=== PATIENT | female | born 1960 | race African-American/Black ===

== ENCOUNTER 2018-09-17 15:12 | Outpatient (CLI) | payer OTHER ==
--- NOTE | 2018-09-17 16:14 | RAD ---
PA AND LATERAL CHEST: History: Disability evaluation. Comparison: 12-12-14 FINDINGS: Heart size is within normal limits. There are atherosclerotic changes of the aorta. The lungs are fredy ar of any infiltrative process. IMPRESSION: No active intrathoracic disease. POS: TPC
== END 2018-09-17 15:13 | disposition home or self-care (01) ==
LOC: BICRAD 15:12
PROVIDERS: ATTEND Internal Medicine
DX: Z02.71 Encounter for disability determination (principal)
CPT/HCPCS: 71046

== ENCOUNTER 2019-08-19 17:05 | Emergency (ER) | payer SELFPAY ==
[2019-08-19 18:51] LABS: #Basophils 0.1 thou/uL (0.0-0.2); #Eosinphils 0.4 thou/uL (0.0-0.7); #Lymphocytes 1.9 thou/uL (1.20-3.40); #Monocytes 0.5 thou/uL (0.11-0.59); #Neutrophils 2.8 thou/uL (1.40-6.50); %Basophils 1.4 % (0.0-1.0); %Eosinophils 6.8 % (0.0-10.0); %Lymphocytes 33.8 % (21.0-51.0); %Monocytes 8.7 % (0.0-10.0); %Neutrophils 49.3 % (42.0-75.0); Hemoglobin 13.9 g/dL (12.0-16.0); Mean Corpuscular HGB CONC 32.9 g/dL (32.0-36.0); Mean Corpuscular Volume 91.1 fL (78.0-98.0); Mean Platelet Volume 8.1 fL (7.4-10.4); Platelet Count 302 thou/uL (130-400); RBC Distribution Width 11.9 % (11.5-14.5); Red Blood Cell (RBC) Count 4.64 mill/uL (4.20-5.40); White Blood Cell (WBC) Count 5.6 thou/uL (4.8-10.8)
[2019-08-19] MEDS ORDERED: Famotidine 20 MG TAB ONE (19:03)
--- NOTE | 2019-08-19 19:03 | RAD ---
AP CHEST: 08/19/19 HISTORY: Chest pain. Lung mitchell are clear. Heart and mediastinum appear normal. IMPRESSION: Negative chest. POS: OFF
[2019-08-19 19:13] LABS: ALT (SGPT) 7 U/L (8-55); AST (SGOT) 12 U/L (5-34); Alkaline Phosphatase 80 U/L (40-110); Anion Gap 10 mmol/L (10-20); BUN (Urea Nitrogen) 12 mg/dL (9.8-20.1); Bilirubin, Total 0.3 mg/dL (0.2-1.2); Calc. Creatinine Clearance 0 mL/min (70-130); Calcium 9.2 mg/dL (7.8-10.44); Carbon Dioxide 30 mmol/L (22-29); Chloride 105 mmol/L (98-107); Estimated GFR-MDRD 72; Globulin 3.6 g/dL (2.4-3.5); Glucose 92 mg/dL (70-105); Lipase 30 U/L (8-78); Potassium 3.9 mmol/L (3.5-5.1); Protein, Total 7.6 g/dL (6.0-8.3); Sodium 141 mmol/L (136-145)
[2019-08-19] MEDS ORDERED: Acetaminophen 500 MG TAB ONE (19:42)
[2019-08-19] MEDS ORDERED: Cyclobenzaprine 10 MG TAB ONE (19:44)
== END 2019-08-19 21:32 | disposition home or self-care (01) ==
LOC: ERS 17:05
DX: R07.2 Precordial pain (principal); I25.10 Atherosclerotic heart disease of native coronary artery without angina pectoris; I25.2 Old myocardial infarction; E03.9 Hypothyroidism, unspecified; I10 Essential (primary) hypertension; F17.210 Nicotine dependence, cigarettes, uncomplicated; Z79.899 Other long term (current) drug therapy; V89.2XXA Person injured in unspecified motor-vehicle accident, traffic, initial encounter
CPT/HCPCS: 36415; 71045; 80053; 83690; 83880; 84484; 85025; 93005

== ENCOUNTER 2019-09-17 10:55 | Observation (INO) | payer SELFPAY ==
[2019-09-17] MEDS ORDERED: hydrALAZINE 20 MG/ML VIAL ONE (11:31)
--- NOTE | 2019-09-17 11:31 | RAD ---
XR Chest 1 View Portable HISTORY: Chest pain, fall COMPARISON: 08/19/2019 FINDINGS: The heart size is prominent. The lungs are well expanded without focal areas of consolidati on, pneumothorax or pleural effusions. IMPRESSION: No radiographic evidence of acute cardiopulmonary process.
[2019-09-17 11:44] LABS: #Eosinphils 0.5 thou/uL (0.0-0.7); #Lymphocytes 1.6 thou/uL (1.20-3.40); #Monocytes 0.4 thou/uL (0.11-0.59); #Neutrophils 1.9 thou/uL (1.40-6.50); %Basophils 0.8 % (0.0-1.0); %Eosinophils 11.7 % (0.0-10.0); %Lymphocytes 36.2 % (21.0-51.0); %Monocytes 8.7 % (0.0-10.0); %Neutrophils 42.6 % (42.0-75.0); Hemoglobin 13.4 g/dL (12.0-16.0); Mean Corpuscular Hemoglobin 28.9 pg (27.0-31.0); Mean Corpuscular Volume 90.5 fL (78.0-98.0); Mean Platelet Volume 8.2 fL (7.4-10.4); Platelet Count 316 thou/uL (130-400); Red Blood Cell (RBC) Count 4.64 mill/uL (4.20-5.40); White Blood Cell (WBC) Count 4.4 thou/uL (4.8-10.8)
[2019-09-17 12:14] LABS: ALT (SGPT) Less than 7 U/L (8-55); AST (SGOT) 12 U/L (5-34); Albumin 4.1 g/dL (3.5-5.0); Alkaline Phosphatase 78 U/L (40-110); Anion Gap 13 mmol/L (10-20); BUN (Urea Nitrogen) 9 mg/dL (9.8-20.1); Bilirubin, Total 0.3 mg/dL (0.2-1.2); CK (CPK) 185 U/L (29-168); Calc. Creatinine Clearance 0 mL/min (70-130); Calcium 9.1 mg/dL (7.8-10.44); Carbon Dioxide 25 mmol/L (22-29); Chloride 107 mmol/L (98-107); Estimated GFR-MDRD 76; Globulin 3.2 g/dL (2.4-3.5); Glucose 95 mg/dL (70-105); Lipase 13 U/L (8-78); Potassium 3.8 mmol/L (3.5-5.1); Protein, Total 7.3 g/dL (6.0-8.3); Sodium 141 mmol/L (136-145)
[2019-09-17] MEDS ORDERED: Ondansetron PF 4 MG/2 ML Vial ONE (12:32)
[2019-09-17 14:53] LABS: Troponin I Less than 0.010 ng/mL (< 0.028)
[2019-09-17] MEDS ORDERED: Ondansetron ODT 4 MG TAB SL PRN (15:11)
[2019-09-17] MEDS ORDERED: Ondansetron PF 4 MG/2 ML Vial IVP PRN ×2 (15:11→18:00)
[2019-09-17 15:37] VITALS: BMI 36.9
[2019-09-17] MEDS: Calcium Carbonate 500 MG ChewTAB PO SCH ×2 (17:14→17:23)
[2019-09-17] MEDS ORDERED: Labetalol HCl 100 MG/20 ML VIAL SLOW IVP PRN (18:00)
[2019-09-17] MEDS ORDERED: Acetaminophen 500 MG TAB PO PRN (18:00)
[2019-09-17] MEDS ORDERED: hydrALAZINE 20 MG/ML VIAL SLOW IVP PRN (18:00)
[2019-09-17] MEDS ORDERED: Ondansetron ODT 4 MG TAB PO PRN (18:00)
--- NOTE | 2019-09-17 18:50 | CT ---
HEAD CT WITHOUT CONTRAST: 09/17/19 COMPARISON: 09/18/16 HISTORY: Hypertensive urgency. Syncope. FINDINGS: No parenchymal hemorrhage. No extra-axial hematoma. No midline shift. Basilar cisterns are patent. Brain volume is age appropriate. Cortical corley-white m atter differentiation is preserved. Ventricles and sulci are patent and symmetric. Indeterminate hyp oattenuation adjacent to the occipital horn of the left lateral ventricle which favors a focus of enc ephalomalacia in the white matter. Calvarium is intact. Adequate aeration of the sinuses and mastoid air cells. IMPRESSION: No definite acute intracranial process. Hypoattenuation in the white matter adjacent to the occipita l horn of the left lateral ventricle may represent remote white matter insult. Better interrogation with a brain MRI is recommended. POS: PPP
[2019-09-17] MEDS: Ibuprofen 200 MG TAB PO PRN (19:42)
[2019-09-17] MEDS: Famotidine 20 MG TAB PO SCH (19:42)
--- NOTE | 2019-09-17 20:22 | HP ---
PRIMARY CARE PROVIDER: Dr. Brittney Mcwilliams. CHIEF COMPLAINT: Passing out and hypertension. HISTORY OF PRESENT ILLNESS: This is a 59-year-old female, who presents to [facility] Emergency Department by EMS transport after the patient states she apparently passed out briefly while at the disability office. The patient had gone for an appointment when she sat down in a chair and apparently fell on the floor. The patient states she had a brief loss of consciousness, but was arousable and oriented when awakening. The patient's blood pressure was apparently 348/114 per documentation in the emergency room, but the patient states she did take her home blood pressure medication of lisinopril 20 mg daily. The patient admits to [id number] blood pressure even being compliant with her home blood pressure regimen. The patient admits to chronic blurry vision, worsening in the last 24 hours. The patient admits to daily headaches as well as increased fatigue and some swelling of her ankles. The patient denied any travel history exposure, recent vaccinations, or febrile illness, but does report loose stools over the last 1-2 weeks. The patient denies any family members with similar symptoms. The patient denied any unilateral weakness, difficulty with speech, or double vision. In the emergency room, the patient underwent general evaluation including portable chest x-ray showing no acute process. Metabolic screening showed no acute process. ER treatment included IV Zofran and hydralazine with overall improvement in blood pressure trend. PAST MEDICAL HISTORY: 1. Hypertension. 2. Coronary artery disease, status post myocardial infarction x3. 3. Hypothyroidism, on current Synthroid. PAST SURGICAL HISTORY: 1. Status post partial right breast resection. 2. Status post bilateral tubal ligation. 3. Status post cardiac catheterization with cardiac stent placement. CURRENT MEDICATIONS: 1. Lisinopril 20 mg p.o. daily. 2. Synthroid 25 mcg p.o. daily. 3. Enteric-coated aspirin 81 mg p.o. daily. ALLERGIES: NO KNOWN DRUG ALLERGIES. FAMILY HISTORY: Positive for hypertension and coronary artery disease. SOCIAL HISTORY: Resides in [place], [place]. Unemployed. Seeking disability benefits. Smokes up to half a pack of cigarettes daily. No alcohol or illicit drug use. REVIEW OF SYSTEMS: CONSTITUTIONAL: Negative for weight loss or gain, ability to conduct usual activities. SKIN: Negative for rash, itching. EYES: Negative for double vision, pain. ENT/MOUTH: Negative for nose bleeding, neck stiffness, pain, tenderness. CARDIOVASCULAR: Negative for palpitations, dyspnea on exertion, orthopnea. RESPIRATORY: Negative for shortness of breath, wheezing, cough, hemoptysis, fever or night sweats. GASTROINTESTINAL: Negative for poor appetite, abdominal pain, heartburn, nausea, vomiting, constipation, or diarrhea. GENITOURINARY: Negative for urgency, frequency, dysuria, nocturia. MUSCULOSKELETAL: Negative for pain, swelling. NEUROLOGIC/PSYCHIATRIC: Negative for anxiety, depression. ALLERGY/IMMUNOLOGIC: Negative for skin rash, bleeding tendency. Otherwise, negative except as stated per HPI. PHYSICAL EXAMINATION: VITAL SIGNS: On admission, blood pressure 203/83, respiratory rate 18, pulse 108, temperature 98.4 degrees Fahrenheit, O2 saturation 100% on room air. GENERAL APPEARANCE: This is a 59-year-old female, alert and oriented x3, pleasant, in no acute distress. HEENT: Pupils are equal, round, reactive to light and accommodation. Extraocular muscles are intact. Bilateral conjunctival injection noted. Nares patent. OP is clear. Teeth in fair repair. NECK: Supple. No cervical adenopathy. No thyromegaly. No carotid bruits. No JVD appreciated. Cervical spine with full active and passive range of motion. No meningeal signs noted. CHEST: Lungs are clear to auscultation bilaterally. Diminished breath sounds in the bases. CARDIOVASCULAR: S1 and S2 with distant heart sounds. No murmur, rub, or gallop appreciated. ABDOMEN: Obese, soft, nontender, and nondistended. Bowel sounds are positive in all 4 quadrants. There is no hepatosplenomegaly. No abdominal bruits. No rebound or guarding appreciated. EXTREMITIES: Warm and dry with fair turgor. No clubbing, cyanosis, or asymmetric edema appreciated. Pulses palpable distally at the dorsalis pedis, posterior tibial, and popliteal arteries bilaterally. Capillary refill less than 2 seconds. NEUROLOGIC: Cranial nerves 2 through 12 are grossly intact. No focal or lateralizing signs appreciated. PERTINENT LABORATORY AND X-RAY FINDINGS: Sodium 141, potassium 3.8, chloride 107, CO2 of 25, BUN 9, creatinine 0.92. Estimated GFR 76, glucose 95, calcium 9.1, AST 12, ALT less than 7, alkaline phosphatase 78, total CK of 185. Troponin I negative x2. BNP 49. Lipase 14. CBC within normal limits. Portable chest x-ray dated 09/17/2019, showed no acute cardiopulmonary process. EKG dated 09/17/2019, by my interpretation shows sinus bradycardia with heart rates in the 50s. Normal R-wave progression noted in the precordial leads. Normal axis. No acute ST-T wave changes appreciated. ASSESSMENT AND PLAN: 1. Hypertensive urgency. The patient will be placed on observation on the telemetry unit. Resume home lisinopril 20 mg daily. IV hydralazine and labetalol as needed for systolic blood pressure greater than or equal to 170. We will continue blood pressure regimen titration for optimal response. Check magnesium and TSH level in the a.m. 2. Near syncope. Suspect secondarily to #1. Check CT imaging of the brain to rule out intracranial process. 3. Hypothyroidism. Check TSH and free T4 level in the a.m. Resume Synthroid 25 mcg daily. 4. Visual disturbance. Secondarily to #1. We will continue to monitor clinical response. CT of the brain pending. 5. Prophylaxis. SCDs while in bed. Pepcid 20 mg p.o. b.i.d. 6. Code status is full. Surrogate medical decision maker is the patient's daughter. Job ID: [id number]
[2019-09-18 01:37] LABS: Troponin I Less than 0.010 ng/mL (< 0.028)
[2019-09-18 05:11] LABS: Eosinophils 3 % (0-10); Hemoglobin 13.2 g/dL (12.0-16.0); Lymphocytes 39 % (21-51); MDiff Complete? YES; Mean Corpuscular HGB CONC 31.7 g/dL (32.0-36.0); Mean Corpuscular Hemoglobin 28.7 pg (27.0-31.0); Mean Corpuscular Volume 90.5 fL (78.0-98.0); Mean Platelet Volume 8.1 fL (7.4-10.4); Monocytes 11 % (0-10); Neutrophil 46 % (42-75); Platelet Count 309 thou/uL (130-400); Platelet Morphology Comment Appears Adequate; RBC Distribution Width 12.2 % (11.5-14.5); Red Blood Cell (RBC) Count 4.62 mill/uL (4.20-5.40); White Blood Cell (WBC) Count 4.9 thou/uL (4.8-10.8)
[2019-09-18 05:31] LABS: Anion Gap 12 mmol/L (10-20); BUN (Urea Nitrogen) 10 mg/dL (9.8-20.1); Calc. Creatinine Clearance 94 mL/min (70-130); Carbon Dioxide 27 mmol/L (22-29); Chloride 105 mmol/L (98-107); Estimated GFR-MDRD 72; Glucose 95 mg/dL (70-105); Potassium 3.3 mmol/L (3.5-5.1); Sodium 141 mmol/L (136-145)
[2019-09-18 05:47] LABS: Free T4 (Free Thyroxine) 0.69 ng/dL (0.70-1.48); Thyroid Stimulating Hormone 3.0774 uIU/mL (0.35-4.94)
[2019-09-18] MEDS ORDERED: Levothyroxine Sodium 25 MCG TAB PO SCH (06:00)
--- NOTE | 2019-09-18 08:10 | ULT ---
BILATERAL CAROTID DUPLEX ULTRASOUND: HISTORY: Syncope TECHNIQUE: Grayscale, color-flow and spectral Doppler ultrasound imaging of the extracranial carotid artery syst ems was performed bilaterally. FINDINGS: There is plaque formation on either side. The peak systolic velocity in the right ICA measures 95 cm/s with an end-diastolic velocity of 33 cm/ s and a systolic ratio of 1.15. The peak systolic velocity in the left ICA measures 101 cm/s with an end-diastolic velocity of 43 cm/s and a systolic ratio of 2.07. Flow in both vertebral arteries remains antegrade. IMPRESSION: No evidence of hemodynamically significant stenosis.
[2019-09-18] MEDS: Famotidine 20 MG TAB PO SCH (08:19)
[2019-09-18] MEDS ORDERED: Prevnar 13-Val Conj/PF 0.5 ML SYRINGE IM ONE (09:00)
[2019-09-18] MEDS ORDERED: Lisinopril 20 MG TAB PO SCH (09:00)
[2019-09-18] MEDS ORDERED: FLU VACC QS2019-20(6MOS UP)/PF 60 MCG/0.5 ML SYRINGE IM ONE (09:00)
[2019-09-18] MEDS: Ibuprofen 200 MG TAB PO PRN (10:43)
[2019-09-18 15:32] VITALS: TEMP 98.1
[2019-09-18 15:54] LABS: Amphetamine Not Detected (NotDetected); Barbiturates Screen Not Detected (NotDetected); Benzodiazepine Screen Not Detected (NotDetected); Cocaine Metabolite Screen Not Detected (NotDetected); Medtox Control Line Valid? VALID (VALID); Medtox Reader # READER 4; Methadone Not Detected (NotDetected); Methamphetamine Not Detected (NotDetected); Opiate Screen Detected (NotDetected); Oxycodone Screen Not Detected (NotDetected); Phencyclidine (PCP) Not Detected (NotDetected); THC/Cannabinoid Screen Not Detected (NotDetected); Tricyclic Screen Not Detected (NotDetected)
[2019-09-18 16:40] VITALS: BP 142/75
--- NOTE | 2019-09-19 02:16 | DIS ---
DATE OF ADMISSION: 09/17/2019 DATE OF DISCHARGE: 09/18/2019 DISCHARGE DIAGNOSES: 1. Hypertensive urgency, resolved. 2. Near syncope secondary to #1. 3. Hypothyroidism. 4. Visual disturbance secondary to number #1, resolved. CONSULTATIONS: None. PERTINENT LABORATORY AND X-RAY FINDINGS: Basic metabolic profile within normal limits. Troponin I negative x3. BNP 49.2. TSH 3.08, free T4 0.69. CBC within normal limits. Urine drug screen positive for opiates. Portable chest x-ray dated 09/17/2019 showed no acute cardiopulmonary process. CT of the brain without contrast dated 09/17/2019 showed no acute intracranial process. White matter changes noted in the occipital horn of the left lateral ventricle, chronic in nature. Carotid Doppler study dated 09/18/2019, showed no hemodynamically significant stenosis. 2D transthoracic echocardiogram dated 09/18/2019, showed ejection fraction of 60% to 65%, grade 2 diastolic dysfunction. HOSPITAL COURSE: The patient was observed on the telemetry unit after initially presenting status post near syncopal episode with hypertensive urgency. The patient underwent initial evaluation with treatment including IV hydralazine with overall improvement in blood pressure trend. The patient was resumed on lisinopril 20 mg daily with additional metoprolol 12.5 mg b.i.d. Serial blood pressure monitoring showed overall labile trend with recommendations for outpatient blood pressure monitoring. CT imaging of the brain showed no acute process and the patient was recommended to monitor her blood pressure closely on an outpatient basis. I have examined the patient at the time of discharge and discussed followup instructions. The patient verbalized understanding and agreement ready for discharge on 09/18/2019. DISCHARGE MEDICATIONS: 1. Synthroid 25 mcg p.o. daily. 2. Lisinopril 20 mg p.o. daily. 3. Metoprolol tartrate 12.5 mg p.o. b.i.d. FOLLOWUP: The patient may follow up with her primary care provider, Dr. Brittney Mcwilliams within 7 days of discharge. CONDITION ON DISCHARGE: Stable. ACTIVITY: Ad-yo. DIET: Heart healthy. CODE STATUS: Full. DISPOSITION: To home, 09/18/2019. Job ID: [id number]
== END 2019-09-18 18:12 | disposition home or self-care (01) ==
LOC: ERS 10:55 → 2SW 15:08 → SURG A 15:10 → 2SW 15:20
PROVIDERS: ADMIT Family Medicine; ATTEND Family Medicine
DX: I16.0 Hypertensive urgency (principal); R55 Syncope and collapse; H53.9 Unspecified visual disturbance; I10 Essential (primary) hypertension; I25.10 Atherosclerotic heart disease of native coronary artery without angina pectoris; E03.9 Hypothyroidism, unspecified; F17.210 Nicotine dependence, cigarettes, uncomplicated; Z79.82 Long term (current) use of aspirin; Z79.899 Other long term (current) drug therapy
CPT/HCPCS: 36415; 70450; 71045; 80048; 80053; 80306; 82550; 83690; 83735; 83880; 84439; 84443; 84484; 85007; 85025; 85027; 90471; 90670; 90686; 93005; 93306; 93880; 96374; 96375; 96376; G0008; G0009; G0378; J0360; J2405; Q0162

== ENCOUNTER 2020-11-19 18:24 | Inpatient (IN) | payer MEDICAID, SELFPAY ==
[2020-11-19] MEDS ORDERED: Ondansetron PF 4 MG/2 ML Vial ONE (20:05)
[2020-11-19] MEDS ORDERED: Acetaminophen 325 MG TAB PO PRN (20:20)
[2020-11-19 21:06] LABS: Hemoglobin 10.4 g/dL (12.0-16.0)
[2020-11-19] MEDS: Pantoprazole 40 MG VIAL IVP SCH (21:43)
[2020-11-19] MEDS: Sodium Chloride 0.9% 1,000 ML IV SCH (21:43)
[2020-11-19 21:49] VITALS: BMI 28.8
[2020-11-20 03:55] LABS: SARS-CoV-2 PCR by NAA Not Detected (NotDetected)
[2020-11-20 06:30] LABS: Eosinophils 2 % (0-10); Lymphocytes 47 % (21-51); MDiff Complete? YES; Mean Corpuscular Hemoglobin 30.2 pg (27.0-31.0); Mean Corpuscular Volume 91.5 fL (78.0-98.0); Mean Platelet Volume 8.2 fL (7.4-10.4); Monocytes 1 % (0-10); Neutrophil 50 % (42-75); Platelet Count 258 thou/uL (130-400); Platelet Morphology Comment Appears Adequate; RBC Distribution Width 12.6 % (11.5-14.5); Red Blood Cell (RBC) Count 2.96 mill/uL (4.20-5.40); White Blood Cell (WBC) Count 6.8 thou/uL (4.8-10.8)
[2020-11-20 06:34] LABS: Anion Gap 9 mmol/L (10-20); BUN (Urea Nitrogen) 11 mg/dL (9.8-20.1); Calc. Creatinine Clearance 102 mL/min (70-130); Calcium 8.2 mg/dL (7.8-10.44); Carbon Dioxide 25 mmol/L (22-29); Chloride 110 mmol/L (98-107); Glucose 99 mg/dL (70-105); Potassium 3.4 mmol/L (3.5-5.1); Sodium 141 mmol/L (136-145)
[2020-11-20] MEDS: Pantoprazole 40 MG VIAL IVP SCH ×2 (07:51→19:51)
[2020-11-20] MEDS: Sodium Chloride 0.9% 1,000 ML IV SCH ×2 (07:52→23:35)
[2020-11-20] MEDS ORDERED: GoLYTELY 4,000 ml Bottle PO SCH (14:15)
[2020-11-21] MEDS ORDERED: Ketamine 50 MG/ML (10ML VIAL) ONE (07:46)
[2020-11-21] MEDS ORDERED: PROPOFOL 200 MG/20 ML VIAL ONE ×2 (08:07→13:33)
[2020-11-21] MEDS ORDERED: Lidocaine 1% PF 5 ML VIAL ONE (08:07)
[2020-11-21] MEDS ORDERED: Ondansetron HCl/PF 4 MG/2 ML Vial IVP PRN ×2 (08:33→08:41)
[2020-11-21] MEDS ORDERED: Promethazine HCl 25 MG/ML VIAL SLOW IVP PRN (08:41)
[2020-11-21] MEDS ORDERED: Promethazine HCl 25 MG/ML VIAL IM PRN ×2 (08:41→17:24)
[2020-11-21] MEDS ORDERED: hydrALAZINE 20 MG/ML VIAL ONE (09:40)
[2020-11-21] MEDS: Pantoprazole 40 MG VIAL IVP SCH ×2 (10:13→20:52)
[2020-11-21 11:00] LABS: #Eosinphils 0.5 thou/uL (0.0-0.7); #Monocytes 0.4 thou/uL (0.11-0.59); #Neutrophils 4.1 thou/uL (1.40-6.50); %Basophils 0.6 % (0.0-1.0); %Eosinophils 7.5 % (0.0-10.0); %Lymphocytes 27.9 % (21.0-51.0); %Monocytes 6.1 % (0.0-10.0); %Neutrophils 57.9 % (42.0-75.0); Hemoglobin 10.2 g/dL (12.0-16.0); Mean Corpuscular Hemoglobin 31.1 pg (27.0-31.0); Mean Corpuscular Volume 91.4 fL (78.0-98.0); Mean Platelet Volume 8.3 fL (7.4-10.4); Platelet Count 266 thou/uL (130-400); RBC Distribution Width 12.7 % (11.5-14.5); Red Blood Cell (RBC) Count 3.28 mill/uL (4.20-5.40)
[2020-11-21 11:06] LABS: Prothrombin Time 13.1 sec (12.0-14.7)
[2020-11-21 11:21] LABS: ALT (SGPT) 8 U/L (8-55); AST (SGOT) 14 U/L (5-34); Albumin 3.8 g/dL (3.5-5.0); Alkaline Phosphatase 72 U/L (40-110); Anion Gap 16 mmol/L (10-20); BUN (Urea Nitrogen) 6 mg/dL (9.8-20.1); Bilirubin, Total 0.3 mg/dL (0.2-1.2); Calc. Creatinine Clearance 95 mL/min (70-130); Calcium 8.6 mg/dL (7.8-10.44); Carbon Dioxide 23 mmol/L (22-29); Chloride 107 mmol/L (98-107); Globulin 3.4 g/dL (2.4-3.5); Glucose 92 mg/dL (70-105); Potassium 3.6 mmol/L (3.5-5.1); Protein, Total 7.2 g/dL (6.0-8.3); Sodium 142 mmol/L (136-145)
[2020-11-21] MEDS ORDERED: ceFOXitin 1 GM VIAL ONE (12:34)
[2020-11-21] MEDS ORDERED: cefOXitin Sodium/Dextrose 2 GM/50 ML BAG ONE (12:35)
[2020-11-21] MEDS ORDERED: HYDROmorphone 0.5 MG/0.5 ML SYRINGE ONE (12:47)
[2020-11-21] MEDS ORDERED: Midazolam HCl 2 mg/2 ml Vial ONE (12:47)
[2020-11-21] MEDS ORDERED: Fentanyl 250 MCG/5 ML VIAL ONE (12:47)
[2020-11-21] MEDS ORDERED: diphenhydrAMINE 50 MG/ML VIAL ONE (13:33)
[2020-11-21] MEDS ORDERED: Ketorolac Tromethamine 30 MG/ML VIAL ONE (13:33)
[2020-11-21] MEDS ORDERED: Ondansetron PF 4 MG/2 ML Vial ONE (13:33)
[2020-11-21] MEDS ORDERED: Glycopyrrolate 0.2 MG/ML 5 ML SYRINGE ONE (13:33)
[2020-11-21] MEDS ORDERED: Dexamethasone 20 MG/5 ML VIAL ONE (13:33)
[2020-11-21] MEDS ORDERED: Rocuronium Bromide 10 MG/ML (10ML VIAL) ONE (13:33)
[2020-11-21] MEDS ORDERED: ePHEDrine 50 MG/ML VIAL ONE (13:33)
[2020-11-21] MEDS ORDERED: Albumin 5% 500 ML ONE (14:10)
[2020-11-21] MEDS ORDERED: Fentanyl 100 MCG/2 ML VIAL ONE ×2 (16:22→17:03)
[2020-11-21] MEDS ORDERED: traMADol HCl 50 MG TAB PO PRN ×2 (17:16)
[2020-11-21] MEDS ORDERED: Morphine 2 MG/ML VIAL SLOW IVP PRN (17:16)
[2020-11-21] MEDS ORDERED: diphenhydrAMINE 50 MG/ML VIAL IVP PRN (17:24)
[2020-11-21] MEDS ORDERED: Naloxone HCl 0.4 mg/ml Vial IV PRN (17:24)
[2020-11-21] MEDS ORDERED: diphenhydrAMINE 25 MG CAP PO PRN (17:24)
[2020-11-21] MEDS ORDERED: Ondansetron PF 4 MG/2 ML Vial IVP PRN (17:24)
[2020-11-21] MEDS ORDERED: diphenhydrAMINE 50 MG/ML VIAL IM PRN (17:24)
[2020-11-21] MEDS ORDERED: Communication Order-Pharmacy FS SCH (17:30)
[2020-11-21] MEDS ORDERED: Ketorolac Tromethamine 30 MG/ML VIAL IVP SCH (18:00)
[2020-11-21] MEDS ORDERED: Acetaminophen 325 MG TAB PO SCH (18:00)
[2020-11-21] MEDS ORDERED: Labetalol HCl 100 MG/20 ML VIAL ONE (18:04)
[2020-11-21] MEDS: Metoprolol Tartrate 25 MG TAB PO SCH (20:52)
[2020-11-21] MEDS: Ketorolac Tromethamine 30 MG/ML VIAL IVP SCH (20:52)
[2020-11-21] MEDS: Sodium Chloride 0.9% 1,000 ML IV SCH ×2 (20:53→21:40)
[2020-11-21] MEDS: hydrALAZINE 20 MG/ML VIAL SLOW IVP PRN (22:11)
[2020-11-22] MEDS: Ketorolac Tromethamine 30 MG/ML VIAL IVP SCH ×4 (02:36→20:36)
[2020-11-22] MEDS: Sodium Chloride 0.9% 1,000 ML IV SCH ×3 (02:37→20:33)
[2020-11-22] MEDS: hydrALAZINE 20 MG/ML VIAL SLOW IVP PRN (08:37)
[2020-11-22] MEDS: Pantoprazole 40 MG VIAL IVP SCH ×2 (08:37→20:37)
[2020-11-22] MEDS: Metoprolol Tartrate 25 MG TAB PO SCH ×2 (08:40→20:36)
[2020-11-22] MEDS: Lisinopril 20 MG TAB PO SCH (08:41)
[2020-11-22] MEDS: Cyclobenzaprine 10 MG TAB PO PRN (12:49)
[2020-11-23] MEDS: Ketorolac Tromethamine 30 MG/ML VIAL IVP SCH ×4 (01:07→20:13)
[2020-11-23] MEDS: HYDROmorphone 10 mg/100 ml CADD IVPB PRN (01:12)
[2020-11-23] MEDS: Sodium Chloride 0.9% 1,000 ML IV SCH ×3 (01:14→16:25)
[2020-11-23] MEDS: Lisinopril 20 MG TAB PO SCH (07:58)
[2020-11-23] MEDS: Metoprolol Tartrate 25 MG TAB PO SCH ×3 (07:58→20:17)
[2020-11-23] MEDS: Pantoprazole 40 MG VIAL IVP SCH ×2 (07:58→20:14)
[2020-11-23] MEDS: hydrALAZINE 20 MG/ML VIAL SLOW IVP PRN ×2 (08:01→13:24)
[2020-11-23 08:24] LABS: Anion Gap 13 mmol/L (10-20); BUN (Urea Nitrogen) 8 mg/dL (9.8-20.1); Calc. Creatinine Clearance 108 mL/min (70-130); Carbon Dioxide 23 mmol/L (22-29); Chloride 108 mmol/L (98-107); Glucose 103 mg/dL (70-105); Magnesium 1.9 mg/dL (1.6-2.6); Phosphorus 2.3 mg/dL (2.3-4.7); Potassium 3.7 mmol/L (3.5-5.1); Sodium 140 mmol/L (136-145)
[2020-11-23 08:39] LABS: Hemoglobin 7.9 g/dL (12.0-16.0); Mean Corpuscular HGB CONC 32.8 g/dL (32.0-36.0); Mean Corpuscular Volume 91.4 fL (78.0-98.0); Mean Platelet Volume 8.3 fL (7.4-10.4); Platelet Count 292 thou/uL (130-400); Red Blood Cell (RBC) Count 2.62 mill/uL (4.20-5.40); White Blood Cell (WBC) Count 8.1 thou/uL (4.8-10.8)
[2020-11-23] MEDS ORDERED: Levothyroxine Sodium 25 MCG TAB PO SCH (08:45)
[2020-11-23 09:20] LABS: Band 9 % (5-11); Eosinophils 2 % (0-10); Lymphocytes 21 % (21-51); MDiff Complete? YES; Monocytes 6 % (0-10); Neutrophil 62 % (42-75); Platelet Morphology Comment Appears Adequate; Polychromasia SLIGHT = 2-3 cells (100X) (0-2/hpf)
[2020-11-23] MEDS ORDERED: traMADol HCl 50 MG TAB PO PRN (09:46)
[2020-11-23] MEDS: Acetaminophen 500 MG TAB PO SCH ×3 (11:10→22:02)
[2020-11-23] MEDS: traMADol HCl 50 MG TAB PO SCH ×3 (11:10→22:02)
[2020-11-24] MEDS: Ketorolac Tromethamine 30 MG/ML VIAL IVP SCH ×4 (01:29→20:29)
[2020-11-24] MEDS: traMADol HCl 50 MG TAB PO SCH ×4 (05:24→23:40)
[2020-11-24] MEDS: Acetaminophen 500 MG TAB PO SCH ×4 (05:24→23:40)
[2020-11-24] MEDS: Sodium Chloride 0.9% 1,000 ML IV SCH ×3 (05:25→21:45)
[2020-11-24] MEDS: Levothyroxine Sodium 25 MCG TAB PO SCH (05:25)
[2020-11-24 05:42] LABS: #Basophils 0.1 thou/uL (0.0-0.2); #Eosinphils 0.6 thou/uL (0.0-0.7); #Lymphocytes 1.4 thou/uL (1.20-3.40); #Monocytes 0.8 thou/uL (0.11-0.59); #Neutrophils 4.7 thou/uL (1.40-6.50); %Basophils 0.7 % (0.0-1.0); %Eosinophils 7.5 % (0.0-10.0); %Lymphocytes 18.9 % (21.0-51.0); %Monocytes 10.1 % (0.0-10.0); %Neutrophils 62.9 % (42.0-75.0); Hemoglobin 7.9 g/dL (12.0-16.0); Mean Corpuscular HGB CONC 33.2 g/dL (32.0-36.0); Mean Corpuscular Hemoglobin 30.4 pg (27.0-31.0); Mean Corpuscular Volume 91.6 fL (78.0-98.0); Platelet Count 310 thou/uL (130-400); RBC Distribution Width 12.9 % (11.5-14.5); White Blood Cell (WBC) Count 7.4 thou/uL (4.8-10.8)
[2020-11-24 05:50] LABS: Anion Gap 10 mmol/L (10-20); BUN (Urea Nitrogen) 7 mg/dL (9.8-20.1); Calc. Creatinine Clearance 121 mL/min (70-130); Calcium 8.1 mg/dL (7.8-10.44); Carbon Dioxide 24 mmol/L (22-29); Chloride 108 mmol/L (98-107); Glucose 91 mg/dL (70-105); Potassium 3.2 mmol/L (3.5-5.1); Sodium 139 mmol/L (136-145)
[2020-11-24] MEDS: HYDROmorphone 10 mg/100 ml CADD IVPB PRN (06:28)
[2020-11-24] MEDS ORDERED: Potassium Phosphate 30 MMOL, Magnesium Sulfate 2 GM in Sodium Chloride 0.9% 250 ML 250 ML IVPB SCH (08:45)
[2020-11-24] MEDS: Pantoprazole 40 MG VIAL IVP SCH ×2 (09:38→20:30)
[2020-11-24] MEDS: Ascorbic Acid 500 mg Chewable Tablet PO SCH ×2 (09:38→20:30)
[2020-11-24] MEDS: Ferrous Sulfate 325 MG TAB PO SCH ×2 (09:40→20:30)
[2020-11-24] MEDS: Metoprolol Tartrate 25 MG TAB PO SCH ×2 (09:50→20:30)
[2020-11-24] MEDS: Lisinopril 20 MG TAB PO SCH (09:50)
[2020-11-24] MEDS ORDERED: CEFAZOLIN 2 GM in Premix Bag 1 BAG IVPB SCH (15:00)
[2020-11-24] MEDS ORDERED: Lisinopril 20 MG TAB PO SCH (15:15)
[2020-11-25] MEDS: Ketorolac Tromethamine 30 MG/ML VIAL IVP SCH ×4 (02:59→14:29)
[2020-11-25 05:36] LABS: #Eosinphils 0.3 thou/uL (0.0-0.7); #Lymphocytes 1.3 thou/uL (1.20-3.40); #Monocytes 0.9 thou/uL (0.11-0.59); #Neutrophils 6.5 thou/uL (1.40-6.50); %Basophils 0.3 % (0.0-1.0); %Eosinophils 3.5 % (0.0-10.0); %Lymphocytes 13.9 % (21.0-51.0); %Monocytes 10.2 % (0.0-10.0); %Neutrophils 72.2 % (42.0-75.0); Hemoglobin 7.7 g/dL (12.0-16.0); Mean Corpuscular Hemoglobin 29.2 pg (27.0-31.0); Mean Corpuscular Volume 91.3 fL (78.0-98.0); Mean Platelet Volume 7.9 fL (7.4-10.4); Platelet Count 359 thou/uL (130-400); RBC Distribution Width 12.7 % (11.5-14.5); Red Blood Cell (RBC) Count 2.63 mill/uL (4.20-5.40)
[2020-11-25 05:54] LABS: Phosphorus 2.5 mg/dL (2.3-4.7)
[2020-11-25] MEDS: traMADol HCl 50 MG TAB PO SCH ×5 (05:57→23:18)
[2020-11-25] MEDS: Acetaminophen 500 MG TAB PO SCH ×5 (05:58→23:19)
[2020-11-25] MEDS: Levothyroxine Sodium 25 MCG TAB PO SCH (05:58)
[2020-11-25] MEDS: Sodium Chloride 0.9% 1,000 ML IV SCH ×3 (05:59→23:18)
[2020-11-25 06:00] LABS: Anion Gap 12 mmol/L (10-20); BUN (Urea Nitrogen) 6 mg/dL (9.8-20.1); Calc. Creatinine Clearance 126 mL/min (70-130); Calcium 7.9 mg/dL (7.8-10.44); Carbon Dioxide 22 mmol/L (22-29); Chloride 108 mmol/L (98-107); Glucose 88 mg/dL (70-105); Magnesium 1.8 mg/dL (1.6-2.6); Potassium 3.1 mmol/L (3.5-5.1); Sodium 139 mmol/L (136-145)
[2020-11-25] MEDS: Metoprolol Tartrate 25 MG TAB PO SCH ×2 (08:19→19:24)
[2020-11-25] MEDS: Lisinopril 20 MG TAB PO SCH (08:19)
[2020-11-25] MEDS: Ascorbic Acid 500 mg Chewable Tablet PO SCH ×3 (08:20→19:25)
[2020-11-25] MEDS: Ferrous Sulfate 325 MG TAB PO SCH ×3 (08:20→19:24)
[2020-11-25] MEDS ORDERED: Fentanyl 100 MCG/2 ML VIAL ONE (08:44)
[2020-11-25] MEDS ORDERED: Bupivacaine 0.25% HCL 30 ML VIAL ONE (08:49)
[2020-11-25] MEDS ORDERED: Sodium Chloride 0.9% 30 ML ONE (08:49)
[2020-11-25] MEDS ORDERED: Lidocaine 1% w/Epinephrine 1:100K 20 ML VIAL ONE (08:49)
[2020-11-25] MEDS ORDERED: Potassium Phosphate 30 MMOL, Magnesium Sulfate 2 GM in Sodium Chloride 0.9% 250 ML 250 ML IVPB SCH (09:00)
[2020-11-25] MEDS ORDERED: Magnesium Sulfate 2 GM in Sodium Chloride 0.9% 100 ML IVPB SCH (09:00)
[2020-11-25] MEDS ORDERED: PROPOFOL 200 MG/20 ML VIAL ONE (09:34)
[2020-11-25] MEDS ORDERED: Lidocaine 1% PF 5 ML VIAL ONE (09:34)
[2020-11-25] MEDS ORDERED: Ondansetron PF 4 MG/2 ML Vial ONE (09:34)
[2020-11-25] MEDS ORDERED: PHENYLEPHRINE-NS 100 MCG/ML 10 ML SYRINGE ONE (09:34)
[2020-11-25] MEDS ORDERED: Dexamethasone 20 MG/5 ML VIAL ONE (09:34)
[2020-11-25] MEDS ORDERED: ePHEDrine 50 MG/ML VIAL ONE (09:34)
[2020-11-25] MEDS ORDERED: Promethazine HCl 25 MG/ML VIAL IM PRN (10:18)
[2020-11-25] MEDS ORDERED: Promethazine HCl 25 MG/ML VIAL SLOW IVP PRN (10:18)
[2020-11-25] MEDS ORDERED: Ondansetron HCl/PF 4 MG/2 ML Vial IVP PRN (10:18)
[2020-11-25] MEDS: Pantoprazole 40 MG VIAL IVP SCH ×2 (12:43→19:25)
[2020-11-25] MEDS: Amoxicillin/Potassium Clav 875 MG TAB PO SCH (19:24)
[2020-11-26] MEDS: Levothyroxine Sodium 25 MCG TAB PO SCH (06:13)
[2020-11-26] MEDS: Acetaminophen 500 MG TAB PO SCH ×2 (06:13→11:31)
[2020-11-26] MEDS: traMADol HCl 50 MG TAB PO SCH ×2 (06:14→11:29)
[2020-11-26] MEDS: Cyclobenzaprine 10 MG TAB PO PRN (06:15)
[2020-11-26 06:18] VITALS: BP 155/84; TEMP 97.7
[2020-11-26 06:25] LABS: #Monocytes 0.7 thou/uL (0.11-0.59); #Neutrophils 6.3 thou/uL (1.40-6.50); %Basophils 0.1 % (0.0-1.0); %Lymphocytes 12.9 % (21.0-51.0); %Monocytes 8.8 % (0.0-10.0); %Neutrophils 78.2 % (42.0-75.0); Hemoglobin 7.6 g/dL (12.0-16.0); Mean Corpuscular Hemoglobin 29.1 pg (27.0-31.0); Mean Corpuscular Volume 90.9 fL (78.0-98.0); Mean Platelet Volume 7.4 fL (7.4-10.4); Platelet Count 432 thou/uL (130-400); RBC Distribution Width 12.8 % (11.5-14.5); White Blood Cell (WBC) Count 8.1 thou/uL (4.8-10.8)
[2020-11-26 06:45] LABS: Anion Gap 15 mmol/L (10-20); BUN (Urea Nitrogen) 11 mg/dL (9.8-20.1); Calc. Creatinine Clearance 108 mL/min (70-130); Calcium 8.2 mg/dL (7.8-10.44); Carbon Dioxide 22 mmol/L (22-29); Chloride 107 mmol/L (98-107); Glucose 111 mg/dL (70-105); Magnesium 2.4 mg/dL (1.6-2.6); Potassium 3.6 mmol/L (3.5-5.1); Sodium 140 mmol/L (136-145)
[2020-11-26 06:50] LABS: Phosphorus 3.6 mg/dL (2.3-4.7)
[2020-11-26] MEDS: Ascorbic Acid 500 mg Chewable Tablet PO SCH (09:25)
[2020-11-26] MEDS: Lisinopril 20 MG TAB PO SCH (09:26)
[2020-11-26] MEDS: Ferrous Sulfate 325 MG TAB PO SCH (09:28)
[2020-11-26] MEDS: Metoprolol Tartrate 25 MG TAB PO SCH (09:28)
[2020-11-26] MEDS: Amoxicillin/Potassium Clav 875 MG TAB PO SCH (09:29)
[2020-11-26] MEDS: Sodium Chloride 0.9% 1,000 ML IV SCH (09:31)
== END 2020-11-26 13:26 | disposition home or self-care (01) | DRG 330 ==
LOC: ERS 18:24 → T4-B 19:25 → OBSVTOIN 11-21 17:52 → SURG A 11-21 19:43
PROVIDERS: ADMIT Student in an Organized Health Care Education/Training Program; ATTEND Internal Medicine
PROC: 0DTF0ZZ Resection of Right Large Intestine, Open Approach (ICD-10-PCS; principal; 2020-11-21)
PROC: 0D1B0Z4 Bypass Ileum to Cutaneous, Open Approach (ICD-10-PCS; 2020-11-21)
PROC: 07BC0ZX Excision of Pelvis Lymphatic, Open Approach, Diagnostic (ICD-10-PCS; 2020-11-21)
PROC: 0DJ08ZZ Inspection of Upper Intestinal Tract, Via Natural or Artificial Opening Endoscopic (ICD-10-PCS; 2020-11-21)
PROC: 0DBL8ZX Excision of Transverse Colon, Via Natural or Artificial Opening Endoscopic, Diagnostic (ICD-10-PCS; 2020-11-21)
PROC: 0JH60WZ Insertion of Totally Implantable Vascular Access Device into Chest Subcutaneous Tissue and Fascia, Open Approach (ICD-10-PCS; 2020-11-25)
PROC: 02HV33Z Insertion of Infusion Device into Superior Vena Cava, Percutaneous Approach (ICD-10-PCS; 2020-11-25)
PROC: B518ZZA Fluoroscopy of Superior Vena Cava, Guidance (ICD-10-PCS; 2020-11-25)
DX: C18.4 Malignant neoplasm of transverse colon (principal); D62 Acute posthemorrhagic anemia; C77.2 Secondary and unspecified malignant neoplasm of intra-abdominal lymph nodes; Z20.822 Contact with and (suspected) exposure to COVID-19; K21.9 Gastro-esophageal reflux disease without esophagitis; I10 Essential (primary) hypertension; I25.10 Atherosclerotic heart disease of native coronary artery without angina pectoris; E03.9 Hypothyroidism, unspecified; F17.210 Nicotine dependence, cigarettes, uncomplicated; K44.9 Diaphragmatic hernia without obstruction or gangrene; K29.70 Gastritis, unspecified, without bleeding; K64.8 Other hemorrhoids; K57.30 Diverticulosis of large intestine without perforation or abscess without bleeding; E87.6 Hypokalemia; Z85.3 Personal history of malignant neoplasm of breast; Z79.890 Hormone replacement therapy; Z79.899 Other long term (current) drug therapy; Z98.51 Tubal ligation status; Z90.11 Acquired absence of right breast and nipple; Z83.3 Family history of diabetes mellitus
CPT/HCPCS: 36415; 71045; 74018; 76000; 76705; 80048; 80053; 82378; 83735; 84100; 85025; 85610; 86850; 86900; 86901; 87635; 88177; 88305; 88309; 88313; 88331; 88361; 93005; 93975; 96374; 96375; 96376; C1788; C9113; G0378; J0360; J0690; J0694; J1100; J1170; J1200; J1642; J1885; J2250; J2405; J2704; J3010; J3475; J3490; J7050; P9045; S0020; U0003; U0005

== ENCOUNTER 2021-02-06 23:58 | Emergency (ER) | payer OTHER ==
[2021-02-07] MEDS ORDERED: Morphine 4 MG/ML VIAL ONE (00:32)
[2021-02-07] MEDS ORDERED: Ondansetron PF 4 MG/2 ML Vial ONE (00:32)
[2021-02-07] MEDS ORDERED: Lidocaine Viscous Sol 2% 15 ml UD Cup ONE (02:41)
[2021-02-07] MEDS ORDERED: Mag-Al 1200 mg/1200 mg/30 ML UDCUP ONE (02:41)
[2021-02-07] MEDS ORDERED: Iopamidol-370 76% 500 ML 1 ML ONE (08:50)
== END 2021-02-07 03:03 | disposition home or self-care (01) ==
LOC: ERS 23:58
DX: R10.84 Generalized abdominal pain (principal); R11.2 Nausea with vomiting, unspecified; E78.5 Hyperlipidemia, unspecified; I10 Essential (primary) hypertension; E03.9 Hypothyroidism, unspecified; F17.210 Nicotine dependence, cigarettes, uncomplicated; I25.2 Old myocardial infarction; Z79.899 Other long term (current) drug therapy
CPT/HCPCS: 74177; 96374; 96375; J2270; J2405; Q9967

== ENCOUNTER 2021-03-04 15:43 | Outpatient (CLI) | payer OTHER | END 2021-03-04 15:44 | disposition home or self-care (01) | LOC: BICRAD 15:43 | PROVIDERS: ATTEND Internal Medicine Hematology & Oncology | DX: M54.2 Cervicalgia (principal); M54.5 Low back pain; R10.2 Pelvic and perineal pain | CPT/HCPCS: 72040; 72100; 72170 ==

== ENCOUNTER 2021-04-25 09:39 | Outpatient (CLI) | payer OTHER ==
[2021-04-25] MEDS ORDERED: Iopamidol-370 76% 500 ML 1 ML ONE (15:07)
== END 2021-04-25 09:40 | disposition home or self-care (01) ==
LOC: BICCT 09:39
PROVIDERS: ATTEND Internal Medicine Hematology & Oncology
DX: C18.4 Malignant neoplasm of transverse colon (principal); R91.1 Solitary pulmonary nodule; J98.4 Other disorders of lung; R93.2 Abnormal findings on diagnostic imaging of liver and biliary tract; Z90.49 Acquired absence of other specified parts of digestive tract
CPT/HCPCS: 74177; Q9967

== ENCOUNTER 2021-06-20 09:37 | Outpatient (CLI) | payer OTHER ==
[~2021-06-20 09:37] MED LIST: Iopamidol-370 76% 500 ML 1 ML ONE
== END 2021-06-20 09:38 | disposition home or self-care (01) ==
LOC: BICCT 09:37
PROVIDERS: ATTEND Internal Medicine Hematology & Oncology
DX: C18.4 Malignant neoplasm of transverse colon (principal); D50.0 Iron deficiency anemia secondary to blood loss (chronic); R91.1 Solitary pulmonary nodule; Z90.49 Acquired absence of other specified parts of digestive tract; C78.7 Secondary malignant neoplasm of liver and intrahepatic bile duct; K44.9 Diaphragmatic hernia without obstruction or gangrene
CPT/HCPCS: 74177; Q9967

== ENCOUNTER 2021-09-12 09:34 | Outpatient (CLI) | payer OTHER | END 2021-09-12 09:35 | disposition home or self-care (01) | LOC: BICCT 09:34 | PROVIDERS: ATTEND Internal Medicine Hematology & Oncology | DX: C18.4 Malignant neoplasm of transverse colon (principal); K44.9 Diaphragmatic hernia without obstruction or gangrene; K76.89 Other specified diseases of liver | CPT/HCPCS: 71260; 74177; 82565 ==

== ENCOUNTER 2021-12-15 07:31 | Outpatient (CLI) | payer OTHER | END 2021-12-15 07:32 | disposition home or self-care (01) | LOC: CT 07:31 | PROVIDERS: ATTEND Internal Medicine Hematology & Oncology | DX: C18.4 Malignant neoplasm of transverse colon (principal); R97.0 Elevated carcinoembryonic antigen [CEA]; D50.0 Iron deficiency anemia secondary to blood loss (chronic); C22.9 Malignant neoplasm of liver, not specified as primary or secondary; G62.0 Drug-induced polyneuropathy; D70.1 Agranulocytosis secondary to cancer chemotherapy; T45.1X5A Adverse effect of antineoplastic and immunosuppressive drugs, initial encounter; M89.8X9 Other specified disorders of bone, unspecified site; R91.1 Solitary pulmonary nodule; K44.9 Diaphragmatic hernia without obstruction or gangrene; I99.8 Other disorder of circulatory system; Z90.49 Acquired absence of other specified parts of digestive tract | CPT/HCPCS: 71260; 74177; 78306; A9503 ==

== ENCOUNTER 2022-01-26 14:19 | Inpatient (IN) | payer OTHER ==
[2022-01-26] MEDS ORDERED: Ondansetron PF 4 MG/2 ML Vial ONE (15:13)
[2022-01-26] MEDS ORDERED: Morphine 2 MG/ML VIAL ONE (15:13)
[2022-01-26 15:17] LABS: #Basophils 0.1 thou/uL (0.0-0.2); #Eosinphils 0.3 thou/uL (0.0-0.7); #Lymphocytes 1.7 thou/uL (1.20-3.40); #Monocytes 0.3 thou/uL (0.11-0.59); #Neutrophils 2.3 thou/uL (1.40-6.50); %Basophils 1.1 % (0.0-1.0); %Eosinophils 5.5 % (0.0-10.0); %Lymphocytes 36.3 % (21.0-51.0); %Monocytes 7.4 % (0.0-10.0); %Neutrophils 49.7 % (42.0-75.0); Hemoglobin 14.3 g/dL (12.0-16.0); Mean Corpuscular HGB CONC 32.4 g/dL (32.0-36.0); Mean Corpuscular Hemoglobin 31.9 pg (27.0-31.0); Mean Corpuscular Volume 98.5 fL (78.0-98.0); Mean Platelet Volume 7.9 fL (7.4-10.4); Platelet Count 263 thou/uL (130-400); RBC Distribution Width 12.2 % (11.5-14.5); Red Blood Cell (RBC) Count 4.48 mill/uL (4.20-5.40); White Blood Cell (WBC) Count 4.5 thou/uL (4.8-10.8)
[2022-01-26 15:39] LABS: ALT (SGPT) 10 U/L (8-55); AST (SGOT) 17 U/L (5-34); Albumin 4.1 g/dL (3.5-5.0); Alkaline Phosphatase 121 U/L (40-110); Anion Gap 11 mmol/L (10-20); BUN (Urea Nitrogen) 12 mg/dL (9.8-20.1); Bilirubin, Total 0.3 mg/dL (0.2-1.2); Calc. Creatinine Clearance 0 mL/min (70-130); Calcium 9.3 mg/dL (7.8-10.44); Carbon Dioxide 32 mmol/L (22-29); Chloride 103 mmol/L (98-107); Globulin 4.1 g/dL (2.4-3.5); Glucose 92 mg/dL (70-105); Lipase 20 U/L (8-78); Potassium 3.5 mmol/L (3.5-5.1); Protein, Total 8.2 g/dL (6.0-8.3); Sodium 142 mmol/L (136-145)
[2022-01-26] MEDS ORDERED: ISOVUE-370 76% 1 ML ONE (15:44)
[2022-01-26] MEDS ORDERED: Mag-Al 1200 mg/1200 mg/30 ML UDCUP ONE (16:12)
[2022-01-26] MEDS ORDERED: Lidocaine Viscous Sol 2% 15 ml UD Cup ONE (16:13)
[2022-01-26 16:44] LABS: Bilirubin Negative (Negative); Blood, Urine Negative (Negative); Glucose, Urine (Dipstick) Negative (Negative); Ketone, Urine Negative (Negative); Leukocyte Negative (Negative); Nitrite Negative (Negative); Protein, Urine (Dipstick) Trace mg/dL (Neg-Trace); Specific Gravity, Urine 1.015 (1.005-1.030); Urobilinogen 0.2 mg/dL (Less than 2)
[2022-01-26 16:49] LABS: Clarity Clear (Clear)
[2022-01-26] MEDS ORDERED: hydrALAZINE 20 MG/ML VIAL ONE (17:31)
[2022-01-26] MEDS ORDERED: Ondansetron ODT 4 MG TAB PO PRN (18:31)
[2022-01-26] MEDS ORDERED: hydrALAZINE 20 MG/ML VIAL SLOW IVP PRN (18:31)
[2022-01-26] MEDS ORDERED: Morphine 2 MG/ML VIAL SLOW IVP PRN (18:33)
[2022-01-26 19:05] LABS: Troponin I Less than 0.010 ng/mL (< 0.028)
[2022-01-26] MEDS: Ondansetron PF 4 MG/2 ML Vial IVP PRN (20:36)
[2022-01-26] MEDS: Lactated Ringer's 1,000 ML IV SCH (20:36)
[2022-01-26] MEDS: Metoprolol Tartrate 25 MG TAB PO SCH (20:36)
[2022-01-26] MEDS: Nicotine 14 MG PATCH TD SCH (20:37)
[2022-01-26] MEDS: Acetaminophen 325 MG TAB PO PRN (20:51)
[2022-01-26 21:42] LABS: Troponin I Less than 0.010 ng/mL (< 0.028)
[2022-01-26 22:31] VITALS: BMI 31.1
[2022-01-26] MEDS: Morphine 4 MG/ML VIAL SLOW IVP PRN (22:47)
[2022-01-27 00:20] LABS: SARS-CoV-2 PCR by NAA Not Detected (NotDetected)
[2022-01-27] MEDS: hydrALAZINE 20 MG/ML VIAL SLOW IVP PRN ×2 (02:28→11:22)
[2022-01-27] MEDS: Lactated Ringer's 1,000 ML IV SCH ×2 (03:42→08:29)
[2022-01-27] MEDS ORDERED: Pantoprazole 40 MG VIAL IVP SCH (03:45)
[2022-01-27] MEDS: Morphine 4 MG/ML VIAL SLOW IVP PRN (03:49)
[2022-01-27] MEDS ORDERED: Levothyroxine Sodium 25 MCG TAB PO SCH (06:00)
[2022-01-27 06:50] LABS: #Eosinphils 0.1 thou/uL (0.0-0.7); #Lymphocytes 1.4 thou/uL (1.20-3.40); #Monocytes 0.4 thou/uL (0.11-0.59); %Basophils 0.7 % (0.0-1.0); %Eosinophils 1.9 % (0.0-10.0); %Monocytes 7.3 % (0.0-10.0); %Neutrophils 61.1 % (42.0-75.0); Mean Corpuscular HGB CONC 31.4 g/dL (32.0-36.0); Mean Corpuscular Hemoglobin 31.3 pg (27.0-31.0); Mean Corpuscular Volume 99.5 fL (78.0-98.0); Mean Platelet Volume 7.6 fL (7.4-10.4); Platelet Count 258 thou/uL (130-400); RBC Distribution Width 12.1 % (11.5-14.5); Red Blood Cell (RBC) Count 4.47 mill/uL (4.20-5.40)
[2022-01-27 07:40] LABS: Anion Gap 10 mmol/L (10-20); BUN (Urea Nitrogen) 11 mg/dL (9.8-20.1); Calc. Creatinine Clearance 83 mL/min (70-130); Calcium 9.1 mg/dL (7.8-10.44); Carbon Dioxide 27 mmol/L (22-29); Cardiac Risk 3.5 (Less than 4.5); Chloride 105 mmol/L (98-107); Cholesterol 255 mg/dl (< 200 Desired); Glucose 115 mg/dL (70-105); HDL Cholesterol 72 mg/dL (>60 Neg Risk); LDL Cholesterol, Calculated 170 mg/dL; Potassium 3.8 mmol/L (3.5-5.1); Sodium 138 mmol/L (136-145); Triglycerides 65 mg/dL (Less than 150)
[2022-01-27] MEDS: Acetaminophen 325 MG TAB PO PRN ×2 (08:26→16:48)
[2022-01-27] MEDS: Enoxaparin Sodium 40 MG/0.4 ML SYRINGE SC SCH (08:27)
[2022-01-27] MEDS: Metoprolol Tartrate 25 MG TAB PO SCH ×2 (08:27→21:21)
[2022-01-27] MEDS ORDERED: Gabapentin 300 MG CAP PO SCH (09:00)
[2022-01-27] MEDS ORDERED: Losartan 25 MG TAB PO SCH (09:00)
[2022-01-27] MEDS ORDERED: Lidocaine 2% Viscous Solution 20 ML, Aluminum & Magnesium Hydroxide 30 ML, Donnatal Eli... SSW SCH (10:45)
[2022-01-27] MEDS: Ondansetron PF 4 MG/2 ML Vial IVP PRN (11:23)
[2022-01-27] MEDS ORDERED: Non-Formulary Item 1 EACH (Prochlorperazine Maleate [Compazine] 10 MG Tab) PO PRN (12:03)
[2022-01-27] MEDS ORDERED: Non-Formulary Item 1 EACH (Ondansetron Hcl [Zofran] 4 MG Tab) PO PRN (12:03)
[2022-01-27] MEDS ORDERED: Ondansetron ODT 4 MG TAB PO PRN (12:12)
[2022-01-27] MEDS ORDERED: Prochlorperazine Maleate 5 MG TAB PO PRN (12:12)
[2022-01-27] MEDS: Dextrose 5 %-0.45 % NaCl 1,000 ML IV SCH ×2 (12:57→21:21)
[2022-01-27] MEDS: Labetalol HCl 100 MG/20 ML VIAL SLOW IVP PRN ×2 (16:48→21:26)
[2022-01-27] MEDS ORDERED: Calcium Carbonate 500 MG ChewTAB PO SCH (19:54)
[2022-01-27] MEDS ORDERED: diphenhydrAMINE 25 MG CAP PO SCH (21:00)
[2022-01-27] MEDS: Nicotine 14 MG PATCH TD SCH (21:19)
[2022-01-27] MEDS: Gabapentin 300 MG CAP PO SCH (21:21)
[2022-01-28] MEDS: hydrALAZINE 20 MG/ML VIAL SLOW IVP PRN (04:04)
[2022-01-28] MEDS ORDERED: Levothyroxine Sodium 25 MCG TAB PO SCH (06:00)
[2022-01-28] MEDS ORDERED: Losartan 25 MG TAB PO SCH (09:00)
[2022-01-28] MEDS ORDERED: Aspirin 81 mg Enteric Coated Tablet PO SCH (09:00)
[2022-01-28] MEDS ORDERED: DULoxetine 60 MG CAP PO SCH (09:00)
[2022-01-28] MEDS ORDERED: Pantoprazole 40 MG VIAL IVP SCH (09:00)
[2022-01-28] MEDS ORDERED: Non-Formulary Item 1 EACH (Levothyroxine Sodium [Levothyroxine] 25 MCG Capsule) PO SCH (09:00)
[2022-01-28] MEDS: Gabapentin 300 MG CAP PO SCH (09:46)
[2022-01-28] MEDS: Enoxaparin Sodium 40 MG/0.4 ML SYRINGE SC SCH (09:46)
[2022-01-28] MEDS: Metoprolol Tartrate 25 MG TAB PO SCH (09:47)
[2022-01-28 12:09] VITALS: BP 131/73; TEMP 97.5
== END 2022-01-28 14:00 | disposition home or self-care (01) | DRG 392 ==
LOC: ERS 14:19 → 2SW 18:11 → OBSVTOIN 01-27 12:26
PROVIDERS: ADMIT Internal Medicine; ATTEND Internal Medicine
DX: K29.70 Gastritis, unspecified, without bleeding (principal); I10 Essential (primary) hypertension; I25.10 Atherosclerotic heart disease of native coronary artery without angina pectoris; E89.0 Postprocedural hypothyroidism; K21.9 Gastro-esophageal reflux disease without esophagitis; F17.210 Nicotine dependence, cigarettes, uncomplicated; I16.0 Hypertensive urgency; G62.9 Polyneuropathy, unspecified; Z20.822 Contact with and (suspected) exposure to COVID-19; Z85.038 Personal history of other malignant neoplasm of large intestine; Z79.899 Other long term (current) drug therapy; Z95.5 Presence of coronary angioplasty implant and graft; I25.2 Old myocardial infarction; Z98.890 Other specified postprocedural states; Z98.51 Tubal ligation status
CPT/HCPCS: 36415; 74177; 76700; 80048; 80053; 80061; 81003; 83690; 84484; 85025; 93005; 93306; 96372; 96375; 96376; C9113; G0378; J0360; J1650; J2270; J2405; J7042; J7120; U0003; U0005

== ENCOUNTER 2022-04-19 09:03 | Outpatient (CLI) | payer OTHER ==
[2022-04-19] MEDS ORDERED: Iopamidol-370 76% 500 ML 1 ML ONE (09:55)
== END 2022-04-19 09:04 | disposition home or self-care (01) ==
LOC: BICCT 09:03
PROVIDERS: ATTEND Internal Medicine Hematology & Oncology
DX: C18.9 Malignant neoplasm of colon, unspecified (principal); R91.8 Other nonspecific abnormal finding of lung field; R93.2 Abnormal findings on diagnostic imaging of liver and biliary tract; Z90.49 Acquired absence of other specified parts of digestive tract
CPT/HCPCS: 71260; 74177; Q9967

== ENCOUNTER 2022-05-04 12:49 | Outpatient (CLI) | payer OTHER | END 2022-05-04 12:50 | disposition home or self-care (01) | LOC: ULT 12:49 | PROVIDERS: ATTEND Internal Medicine Hematology & Oncology | DX: Z51.11 Encounter for antineoplastic chemotherapy (principal); C18.9 Malignant neoplasm of colon, unspecified; I08.1 Rheumatic disorders of both mitral and tricuspid valves; Z79.899 Other long term (current) drug therapy | CPT/HCPCS: 93306 ==

== ENCOUNTER 2022-08-10 11:20 | Outpatient (CLI) | payer OTHER | END 2022-08-10 11:21 | disposition home or self-care (01) | LOC: RAD 11:20 | PROVIDERS: ATTEND Surgery | DX: C18.9 Malignant neoplasm of colon, unspecified (principal) | CPT/HCPCS: 71046 ==

== ENCOUNTER 2022-08-14 07:13 | Day surgery (SDC) | payer OTHER ==
[2022-08-11 10:26] VITALS: BMI 30.4
[2022-08-14] MEDS ORDERED: Ketorolac Tromethamine 30 MG/ML VIAL ONE (07:52)
[2022-08-14] MEDS ORDERED: Acetaminophen 500 MG TAB ONE (07:52)
[2022-08-14] MEDS ORDERED: Lidocaine 1% (PF) 30 ML VIAL ONE ×2 (08:49→11:02)
[2022-08-14] MEDS ORDERED: Bupivacaine/Epinephrine 0.25% 30 ML VIAL ONE ×2 (08:49→09:49)
[2022-08-14] MEDS ORDERED: fentaNYL PF 100 MCG/2 ML SYRINGE ONE ×2 (09:05→10:08)
[2022-08-14] MEDS ORDERED: CEFAZOLIN 2 GM VIAL ONE (09:19)
[2022-08-14] MEDS ORDERED: Sodium Chloride 0.9% 100 ML ONE (09:19)
[2022-08-14] MEDS ORDERED: Ondansetron PF 4 MG/2 ML Vial ONE (09:27)
[2022-08-14] MEDS ORDERED: Labetalol HCl 100 MG/20 ML VIAL ONE (11:32)
[2022-08-14] MEDS ORDERED: Heparin 1,000 UNITS/ML VIAL ONE (14:33)
== END 2022-08-14 13:50 | disposition home or self-care (01) ==
LOC: SDC 07:13
PROVIDERS: ATTEND Surgery
PROC: 0WJ8XZZ Inspection of Chest Wall, External Approach (ICD-10-PCS; principal; 2022-08-14)
PROC: 02HV33Z Insertion of Infusion Device into Superior Vena Cava, Percutaneous Approach (ICD-10-PCS; principal; 2022-08-14)
DX: C18.9 Malignant neoplasm of colon, unspecified (principal); C79.9 Secondary malignant neoplasm of unspecified site; I10 Essential (primary) hypertension; E89.0 Postprocedural hypothyroidism; Z53.9 Procedure and treatment not carried out, unspecified reason; Z79.82 Long term (current) use of aspirin; Z79.890 Hormone replacement therapy; Z79.899 Other long term (current) drug therapy; Z95.5 Presence of coronary angioplasty implant and graft
CPT/HCPCS: 36569; 71045; C1751; J1642; J1644; J1885; J2001; J2405; J3490

== ENCOUNTER 2022-08-15 07:18 | Emergency (ER) | payer OTHER | END 2022-08-15 08:27 | disposition left against medical advice (07) | LOC: ERS 07:18 | DX: Z53.21 Procedure and treatment not carried out due to patient leaving prior to being seen by health care provider (principal) ==

== ENCOUNTER 2022-08-23 08:30 | Day surgery (SDC) | payer OTHER ==
[2022-08-22 09:43] VITALS: BMI 30.4
[2022-08-23] MEDS ORDERED: Ketorolac Tromethamine 30 MG/ML VIAL ONE (09:13)
[2022-08-23] MEDS ORDERED: Acetaminophen 500 MG TAB ONE (09:13)
[2022-08-23] MEDS ORDERED: Bupivacaine HCl 0.5%/Epinephrine 1:200,000/PF 30 ml Vial ONE (09:46)
[2022-08-23] MEDS ORDERED: Lidocaine 1% PF 5 ML VIAL ONE (09:46)
[2022-08-23] MEDS ORDERED: Propofol 500 MG/50 ML VIAL ONE (09:51)
[2022-08-23] MEDS ORDERED: Fentanyl 250 MCG/5 ML VIAL ONE (09:51)
[2022-08-23] MEDS ORDERED: hydrALAZINE 20 MG/ML VIAL ONE (09:51)
[2022-08-23] MEDS ORDERED: Sodium Chloride 0.9% 100 ML ONE (09:56)
[2022-08-23] MEDS ORDERED: CEFAZOLIN 2 GM VIAL ONE (09:56)
[2022-08-23] MEDS ORDERED: PROPOFOL 200 MG/20 ML VIAL ONE (10:00)
== END 2022-08-23 12:15 | disposition home or self-care (01) ==
LOC: SDC 08:30
PROVIDERS: ATTEND Specialist
DX: C18.9 Malignant neoplasm of colon, unspecified (principal); C79.9 Secondary malignant neoplasm of unspecified site; I10 Essential (primary) hypertension; E03.9 Hypothyroidism, unspecified; F17.210 Nicotine dependence, cigarettes, uncomplicated; Z79.82 Long term (current) use of aspirin; Z79.890 Hormone replacement therapy; Z79.899 Other long term (current) drug therapy; Z95.5 Presence of coronary angioplasty implant and graft; Z90.49 Acquired absence of other specified parts of digestive tract
CPT/HCPCS: 71045; C1788; J0360; J1642; J1885; J2704; J3010; J3490

== ENCOUNTER 2022-09-12 12:46 | Outpatient (CLI) | payer OTHER ==
[~2022-09-12 12:46] MED LIST changes: +Iopamidol 370 76% 100 ML VIAL ONE; -Iopamidol-370 76% 500 ML 1 ML ONE
== END 2022-09-12 12:47 | disposition home or self-care (01) ==
LOC: BICCT 12:46
PROVIDERS: ATTEND Internal Medicine Hematology & Oncology
DX: C18.9 Malignant neoplasm of colon, unspecified (principal); R59.0 Localized enlarged lymph nodes; J98.4 Other disorders of lung
CPT/HCPCS: 71260; 74177; Q9967

== ENCOUNTER 2022-10-09 23:54 | Inpatient (IN) | payer OTHER ==
[2022-10-10 00:25] LABS: Bacteria/HPF None Seen HPF (None Seen); Bilirubin Negative (Negative); Blood, Urine Negative (Negative); Clarity Clear (Clear); Glucose, Urine (Dipstick) Normal (Negative); Ketone, Urine Negative (Negative); Leukocyte 75 Leu/uL (Negative); Mucous/LPF 4+ LPF (<2+); Nitrite Negative (Negative); Protein, Urine (Dipstick) 20 mg/dL (Neg-Trace); RBC/HPF 0-3 HPF (0-3); Specific Gravity, Urine 1.024 (1.002-1.036); Squamous Epithelial 0-3 HPF (0-3); WBC/HPF 0-3 HPF (0-3); pH, Urine 5.5 (5.0-9.0)
[2022-10-10 00:50] LABS: ALT (SGPT) 11 U/L (8-55); AST (SGOT) 18 U/L (5-34); Albumin 3.5 g/dL (3.5-5.0); Alkaline Phosphatase 128 U/L (40-110); Anion Gap 14 mmol/L (10-20); BUN (Urea Nitrogen) 12 mg/dL (9.8-20.1); Bilirubin, Total 0.2 mg/dL (0.2-1.2); Calc. Creatinine Clearance 0 mL/min (70-130); Calcium 9.1 mg/dL (7.8-10.44); Carbon Dioxide 23 mmol/L (22-29); Chloride 109 mmol/L (98-107); Estimated GFR 59; Globulin 3.8 g/dL (2.4-3.5); Glucose 100 mg/dL (70-105); Potassium 3.5 mmol/L (3.5-5.1); Protein, Total 7.3 g/dL (6.0-8.3); Sodium 142 mmol/L (136-145)
[2022-10-10 00:56] LABS: Band 1 % (5-11); Eosinophils 3 % (0-10); Hemoglobin 12.2 g/dL (12.0-16.0); Lymphocytes 64 % (21-51); MDiff Complete? YES; Macrocytosis SLIGHT = 6-15 cells (100X) (0-5/hpf); Mean Corpuscular HGB CONC 33.4 g/dL (32.0-36.0); Mean Corpuscular Hemoglobin 33.4 pg (27.0-31.0); Mean Platelet Volume 7.5 fL (7.4-10.4); Monocytes 6 % (0-10); Neutrophil 22 % (42-75); Platelet Count 348 10x3/uL (130-400); Platelet Morphology Comment Appears Adequate; RBC Distribution Width 13.6 % (11.5-14.5); Reactive Lymphocytes 4 % (0-10); Red Blood Cell (RBC) Count 3.64 mill/uL (4.20-5.40)
[2022-10-10] MEDS ORDERED: Ondansetron PF 4 MG/2 ML Vial ONE (02:36)
[2022-10-10] MEDS ORDERED: Morphine 4 MG/ML VIAL ONE ×2 (02:36→14:58)
[2022-10-10] MEDS ORDERED: HYDROmorphone 0.5 MG/0.5 ML SYRINGE ONE (03:29)
[2022-10-10] MEDS ORDERED: hydrALAZINE 20 MG/ML VIAL ONE ×3 (03:29→13:42)
[2022-10-10] MEDS ORDERED: Morphine 2 MG/ML VIAL ONE (11:31)
[2022-10-10] MEDS ORDERED: Iopamidol-370 76% 500 ML 1 ML ONE (12:07)
[2022-10-10] MEDS ORDERED: Ondansetron ODT 4 MG TAB PO PRN (12:12)
[2022-10-10] MEDS ORDERED: Ondansetron PF 4 MG/2 ML Vial IVP PRN (12:12)
[2022-10-10] MEDS ORDERED: Acetaminophen 325 MG TAB PO PRN (12:12)
[2022-10-10] MEDS ORDERED: Lactated Ringer's 1,000 ML IV SCH (12:15)
[2022-10-10] MEDS ORDERED: Losartan 25 MG TAB PO SCH (12:16)
[2022-10-10] MEDS ORDERED: hydrALAZINE 20 MG/ML VIAL SLOW IVP SCH ×2 (13:45→22:45)
[2022-10-10] MEDS: Morphine 4 MG/ML VIAL SLOW IVP PRN ×2 (15:04→19:54)
[2022-10-10] MEDS: Gabapentin 300 MG CAP PO SCH ×2 (15:11→19:53)
[2022-10-10] MEDS ORDERED: Amlodipine 10 MG TAB PO SCH (18:30)
[2022-10-10 18:36] VITALS: BMI 30.3
[2022-10-10] MEDS: Famotidine/PF 20 mg/2ml Vial SLOW IVP SCH (19:54)
[2022-10-11] MEDS: Morphine 4 MG/ML VIAL SLOW IVP PRN ×4 (00:26→20:14)
[2022-10-11] MEDS: Levothyroxine Sodium 25 MCG TAB PO SCH (06:11)
[2022-10-11] MEDS ORDERED: hydrOXYzine 25 MG TAB PO PRN (07:44)
[2022-10-11] MEDS: Metoprolol Tartrate 25 MG TAB PO SCH ×2 (08:22→20:15)
[2022-10-11] MEDS: Gabapentin 300 MG CAP PO SCH ×3 (08:23→20:14)
[2022-10-11] MEDS: Amlodipine 10 MG TAB PO SCH (08:23)
[2022-10-11] MEDS: Aspirin 81 mg Enteric Coated Tablet PO SCH (08:23)
[2022-10-11] MEDS: Famotidine/PF 20 mg/2ml Vial SLOW IVP SCH ×2 (08:23→20:14)
[2022-10-11] MEDS: Losartan 25 MG TAB PO SCH (08:23)
[2022-10-11 09:27] LABS: #Eosinphils 0.1 thou/uL (0.0-0.7); #Lymphocytes 1.6 thou/uL (1.20-3.40); #Monocytes 0.3 thou/uL (0.11-0.59); #Neutrophils 1.3 thou/uL (1.40-6.50); %Basophils 1.3 % (0.0-1.0); %Eosinophils 3.3 % (0.0-10.0); %Lymphocytes 46.9 % (21.0-51.0); %Neutrophils 38.6 % (42.0-75.0); Hemoglobin 12.6 g/dL (12.0-16.0); Mean Corpuscular HGB CONC 31.9 g/dL (32.0-36.0); Mean Corpuscular Hemoglobin 32.3 pg (27.0-31.0); Mean Platelet Volume 7.3 fL (7.4-10.4); Platelet Count 374 10x3/uL (130-400); RBC Distribution Width 13.6 % (11.5-14.5); Red Blood Cell (RBC) Count 3.91 mill/uL (4.20-5.40); White Blood Cell (WBC) Count 3.3 10x3/uL (4.8-10.8)
[2022-10-11 09:48] LABS: ALT (SGPT) 11 U/L (8-55); AST (SGOT) 22 U/L (5-34); Albumin 3.5 g/dL (3.5-5.0); Alkaline Phosphatase 126 U/L (40-110); Anion Gap 14 mmol/L (10-20); BUN (Urea Nitrogen) 9 mg/dL (9.8-20.1); Bilirubin, Total 0.5 mg/dL (0.2-1.2); Calc. Creatinine Clearance 83 mL/min (70-130); Calcium 9.4 mg/dL (7.8-10.44); Carbon Dioxide 24 mmol/L (22-29); Chloride 106 mmol/L (98-107); Estimated GFR 77; Globulin 3.9 g/dL (2.4-3.5); Glucose 95 mg/dL (70-105); Potassium 3.3 mmol/L (3.5-5.1); Protein, Total 7.4 g/dL (6.0-8.3); Sodium 141 mmol/L (136-145)
[2022-10-11] MEDS: DULoxetine 60 MG CAP PO SCH (20:14)
[2022-10-12 05:32] LABS: ALT (SGPT) 10 U/L (8-55); AST (SGOT) 19 U/L (5-34); Albumin 3.1 g/dL (3.5-5.0); Alkaline Phosphatase 114 U/L (40-110); Anion Gap 13 mmol/L (10-20); BUN (Urea Nitrogen) 8 mg/dL (9.8-20.1); Bilirubin, Total 0.4 mg/dL (0.2-1.2); Calc. Creatinine Clearance 81 mL/min (70-130); Calcium 9.1 mg/dL (7.8-10.44); Carbon Dioxide 25 mmol/L (22-29); Chloride 106 mmol/L (98-107); Estimated GFR 75; Globulin 3.5 g/dL (2.4-3.5); Glucose 95 mg/dL (70-105); Potassium 3.8 mmol/L (3.5-5.1); Protein, Total 6.6 g/dL (6.0-8.3); Sodium 140 mmol/L (136-145)
[2022-10-12] MEDS: Morphine 4 MG/ML VIAL SLOW IVP PRN ×3 (05:33→20:07)
[2022-10-12] MEDS: Levothyroxine Sodium 25 MCG TAB PO SCH (05:33)
[2022-10-12 05:42] LABS: Hemoglobin 11.7 g/dL (12.0-16.0); Mean Corpuscular HGB CONC 32.9 g/dL (32.0-36.0); Mean Corpuscular Hemoglobin 33.2 pg (27.0-31.0); Mean Platelet Volume 7.2 fL (7.4-10.4); Platelet Count 315 10x3/uL (130-400); RBC Distribution Width 13.6 % (11.5-14.5); Red Blood Cell (RBC) Count 3.53 mill/uL (4.20-5.40); White Blood Cell (WBC) Count 2.7 10x3/uL (4.8-10.8)
[2022-10-12 05:43] LABS: Band 8 % (5-11); Hypochromia SLIGHT = 6-15 cells (100X) (0-5/hpf); Lymphocytes 64 % (21-51); MDiff Complete? YES; Macrocytosis SLIGHT = 6-15 cells (100X) (0-5/hpf); Monocytes 2 % (0-10); Neutrophil 24 % (42-75); Platelet Morphology Comment Appears Adequate; Reactive Lymphocytes 2 % (0-10)
[2022-10-12] MEDS: Gabapentin 300 MG CAP PO SCH ×3 (07:50→20:03)
[2022-10-12] MEDS: Metoprolol Tartrate 25 MG TAB PO SCH ×3 (07:50→19:57)
[2022-10-12] MEDS: Losartan 25 MG TAB PO SCH (07:50)
[2022-10-12] MEDS: Amlodipine 10 MG TAB PO SCH (07:50)
[2022-10-12] MEDS: Famotidine/PF 20 mg/2ml Vial SLOW IVP SCH (07:51)
[2022-10-12] MEDS: Aspirin 81 mg Enteric Coated Tablet PO SCH (07:51)
[2022-10-12] MEDS: traMADol HCl 50 MG TAB PO PRN (09:04)
[2022-10-12] MEDS: Nicotine 21 MG PATCH TD SCH (10:35)
[2022-10-12 11:11] LABS: Campy jejuni + coli by PCR Negative (Negative); STEC Shiga Toxin 1+2 Negative (Negative); Salmonella spp. by PCR Negative (Negative); Shigella spp + EIEC by PCR Negative (Negative)
[2022-10-12] MEDS: DULoxetine 60 MG CAP PO SCH (20:04)
[2022-10-13 05:03] LABS: Hemoglobin 12.2 g/dL (12.0-16.0); Mean Corpuscular HGB CONC 32.9 g/dL (32.0-36.0); Mean Corpuscular Hemoglobin 33.4 pg (27.0-31.0); Mean Platelet Volume 7.3 fL (7.4-10.4); Platelet Count 317 10x3/uL (130-400); RBC Distribution Width 13.4 % (11.5-14.5); Red Blood Cell (RBC) Count 3.66 mill/uL (4.20-5.40); White Blood Cell (WBC) Count 3.7 10x3/uL (4.8-10.8)
[2022-10-13 05:52] LABS: Anion Gap 11 mmol/L (10-20); BUN (Urea Nitrogen) 15 mg/dL (9.8-20.1); Calc. Creatinine Clearance 53 mL/min (70-130); Calcium 8.6 mg/dL (7.8-10.44); Carbon Dioxide 24 mmol/L (22-29); Chloride 105 mmol/L (98-107); Estimated GFR 46; Glucose 95 mg/dL (70-105); Sodium 137 mmol/L (136-145)
[2022-10-13] MEDS: Levothyroxine Sodium 25 MCG TAB PO SCH (05:53)
[2022-10-13] MEDS: Morphine 4 MG/ML VIAL SLOW IVP PRN (05:57)
[2022-10-13 06:28] LABS: Eosinophils 5 % (0-10); Lymphocytes 58 % (21-51); MDiff Complete? YES; Monocytes 10 % (0-10); Neutrophil 25 % (42-75); Platelet Morphology Comment Appears Adequate; RBC Morphology Normal
[2022-10-13] MEDS ORDERED: Potassium Chloride 20 MEQ TAB PO SCH (06:30)
[2022-10-13] MEDS: Aspirin 81 mg Enteric Coated Tablet PO SCH (08:43)
[2022-10-13] MEDS: Metoprolol Tartrate 25 MG TAB PO SCH ×2 (08:43→20:04)
[2022-10-13] MEDS: Gabapentin 300 MG CAP PO SCH ×3 (08:43→20:08)
[2022-10-13] MEDS: traMADol HCl 50 MG TAB PO PRN (08:47)
[2022-10-13] MEDS ORDERED: Amlodipine 5 MG TAB PO SCH (09:00)
[2022-10-13 09:03] LABS: Free T4 (Free Thyroxine) 0.77 ng/dL (0.70-1.48)
[2022-10-13] MEDS: Nicotine 21 MG PATCH TD SCH (09:21)
[2022-10-13] MEDS: Sodium Chloride 0.9% 1,000 ML IV SCH (09:41)
[2022-10-13] MEDS ORDERED: Electrolyte Replacement Protocol 1 EACH FS SCH (10:00)
[2022-10-13] MEDS ORDERED: Magnesium 2 GM/50 ML(in water) 2 GM in Premix Bag 1 BAG IVPB SCH (10:30)
[2022-10-13] MEDS ORDERED: Electrolyte Replacement Protocol FS PRN (10:30)
[2022-10-13] MEDS: HYDROcodone/Acetaminophen 5/325 mg Tablet PO PRN (20:08)
[2022-10-13] MEDS: DULoxetine 60 MG CAP PO SCH (20:09)
[2022-10-14] MEDS: Sodium Chloride 0.9% 1,000 ML IV SCH ×3 (01:05→22:17)
[2022-10-14 05:20] LABS: Anion Gap 11 mmol/L (10-20); BUN (Urea Nitrogen) 16 mg/dL (9.8-20.1); Calc. Creatinine Clearance 50 mL/min (70-130); Calcium 8.5 mg/dL (7.8-10.44); Carbon Dioxide 24 mmol/L (22-29); Chloride 107 mmol/L (98-107); Estimated GFR 42; Glucose 82 mg/dL (70-105); Magnesium 2.6 mg/dL (1.6-2.6); Potassium 4.1 mmol/L (3.5-5.1); Sodium 138 mmol/L (136-145)
[2022-10-14] MEDS: Levothyroxine Sodium 25 MCG TAB PO SCH (05:54)
[2022-10-14] MEDS: HYDROcodone/Acetaminophen 5/325 mg Tablet PO PRN ×2 (05:56→12:35)
[2022-10-14] MEDS: Gabapentin 300 MG CAP PO SCH ×3 (08:43→20:36)
[2022-10-14] MEDS: Aspirin 81 mg Enteric Coated Tablet PO SCH (08:44)
[2022-10-14] MEDS: Nicotine 21 MG PATCH TD SCH (08:44)
[2022-10-14] MEDS: Metoprolol Tartrate 25 MG TAB PO SCH ×2 (08:44→20:39)
[2022-10-14] MEDS: DULoxetine 60 MG CAP PO SCH (20:36)
[2022-10-15 05:53] LABS: Anion Gap 11 mmol/L (10-20); BUN (Urea Nitrogen) 9 mg/dL (9.8-20.1); Calc. Creatinine Clearance 96 mL/min (70-130); Calcium 8.4 mg/dL (7.8-10.44); Carbon Dioxide 21 mmol/L (22-29); Chloride 113 mmol/L (98-107); Estimated GFR 93; Glucose 88 mg/dL (70-105); Potassium 3.9 mmol/L (3.5-5.1); Sodium 141 mmol/L (136-145)
[2022-10-15] MEDS: Levothyroxine Sodium 25 MCG TAB PO SCH (06:08)
[2022-10-15] MEDS ORDERED: Amlodipine 5 MG TAB PO SCH (08:15)
[2022-10-15] MEDS: Aspirin 81 mg Enteric Coated Tablet PO SCH (08:23)
[2022-10-15 08:25] VITALS: TEMP 98
[2022-10-15] MEDS: Gabapentin 300 MG CAP PO SCH (08:25)
[2022-10-15] MEDS: Nicotine 21 MG PATCH TD SCH (08:26)
[2022-10-15 09:17] VITALS: BP 195/107
[2022-10-15] MEDS: Sodium Chloride 0.9% 1,000 ML IV SCH (09:37)
== END 2022-10-15 11:20 | disposition home or self-care (01) | DRG 375 ==
LOC: ERS 23:54 → ERHOLD 10-10 09:31 → 2SW 10-10 17:40 → OBSVTOIN 10-12 14:30
PROVIDERS: ADMIT Internal Medicine; ATTEND Family Medicine
DX: C18.9 Malignant neoplasm of colon, unspecified (principal); K52.1 Toxic gastroenteritis and colitis; N17.9 Acute kidney failure, unspecified; Z66 Do not resuscitate; I10 Essential (primary) hypertension; I16.0 Hypertensive urgency; F17.210 Nicotine dependence, cigarettes, uncomplicated; F32.A Depression, unspecified; K21.9 Gastro-esophageal reflux disease without esophagitis; I73.9 Peripheral vascular disease, unspecified; T45.1X5A Adverse effect of antineoplastic and immunosuppressive drugs, initial encounter; E03.9 Hypothyroidism, unspecified; E87.6 Hypokalemia; E11.21 Type 2 diabetes mellitus with diabetic nephropathy; Z79.82 Long term (current) use of aspirin; Z79.890 Hormone replacement therapy; Z79.899 Other long term (current) drug therapy; Z98.51 Tubal ligation status; I25.2 Old myocardial infarction
CPT/HCPCS: 36415; 74177; 76705; 80048; 80053; 81003; 81015; 82274; 83605; 83690; 83735; 84439; 84443; 84481; 84484; 85025; 87324; 87449; 87505; 93005; 96372; 96374; 96375; 96376; G0378; J0360; J1170; J1642; J1650; J2270; J2272; J2405; J3475; J7050; J7120; S0028; U0003; U0005

== ENCOUNTER 2022-10-25 20:59 | Emergency (ER) | payer OTHER | END 2022-10-25 21:39 | disposition left against medical advice (07) | LOC: ERS 20:59 | DX: Z53.29 Procedure and treatment not carried out because of patient's decision for other reasons (principal) ==

== ENCOUNTER 2022-11-30 15:20 | Emergency (ER) | payer OTHER ==
[2022-11-30 16:53] LABS: Mean Corpuscular HGB CONC 33.7 g/dL (32.0-36.0); Mean Corpuscular Hemoglobin 31.6 pg (27.0-31.0); Mean Corpuscular Volume 93.8 fl (78.0-98.0); Mean Platelet Volume 8.6 fL (7.4-10.4); Platelet Count 181 10x3/uL (130-400); Red Blood Cell (RBC) Count 4.11 mill/uL (4.20-5.40); White Blood Cell (WBC) Count 3.9 10x3/uL (4.8-10.8)
[2022-11-30 17:09] LABS: Band 9 % (5-11); Lymphocytes 16 % (21-51); MDiff Complete? YES; Monocytes 31 % (0-10); Neutrophil 40 % (42-75); Platelet Morphology Comment Appears Adequate; Polychromasia SLIGHT = 2-3 cells (100X) (0-2/hpf); Reactive Lymphocytes 3 % (0-10)
[2022-11-30 17:12] LABS: ALT (SGPT) 23 U/L (8-55); AST (SGOT) 18 U/L (5-34); Albumin 3.6 g/dL (3.5-5.0); Alkaline Phosphatase 154 U/L (40-110); Anion Gap 15 mmol/L (10-20); BUN (Urea Nitrogen) 14 mg/dL (9.8-20.1); Bilirubin, Total 0.7 mg/dL (0.2-1.2); Calc. Creatinine Clearance 0 mL/min (70-130); Calcium 8.8 mg/dL (7.8-10.44); Carbon Dioxide 23 mmol/L (22-29); Chloride 104 mmol/L (98-107); Estimated GFR 69; Globulin 3.4 g/dL (2.4-3.5); Glucose 107 mg/dL (70-105); Sodium 139 mmol/L (136-145)
[2022-11-30 17:41] LABS: Acetaminophen Less than 10.0 mcg/mL (10.0-30.0); Alcohol Less than 10 mg/dL (Less than 10); CK (CPK) 22 U/L (29-168); Salicylate Less than 8.0 mg/dL (15.0-30.0)
[2022-11-30] MEDS ORDERED: Potassium Chloride 20 MEQ TAB ONE (18:36)
[2022-11-30 19:48] LABS: Bacteria/HPF None Seen HPF (None Seen); Bilirubin Negative (Negative); Blood, Urine Negative (Negative); Clarity Clear (Clear); Glucose, Urine (Dipstick) Normal (Negative); Ketone, Urine 80 mg/dL (Negative); Leukocyte 500 Leu/uL (Negative); Nitrite Negative (Negative); Protein, Urine (Dipstick) 50 mg/dL (Neg-Trace); RBC/HPF 0-3 HPF (0-3); Specific Gravity, Urine 1.026 (1.002-1.036); Squamous Epithelial 0-3 HPF (0-3); Urobilinogen Normal mg/dL (Less than 2); WBC/HPF 21-50 HPF (0-3); pH, Urine 5.5 (5.0-9.0)
[2022-11-30 19:59] LABS: Amphetamine Not Detected (NotDetected); Barbiturates Screen Not Detected (NotDetected); Benzodiazepine Screen Not Detected (NotDetected); Cocaine Metabolite Screen Not Detected (NotDetected); Methadone Not Detected (NotDetected); Methamphetamine Not Detected (NotDetected); Opiate Screen Detected (NotDetected); Oxycodone Screen Not Detected (NotDetected); Phencyclidine (PCP) Not Detected (NotDetected); THC/Cannabinoid Screen Not Detected (NotDetected); Tricyclic Screen Detected (NotDetected)
== END 2022-11-30 20:02 | disposition home or self-care (01) ==
LOC: ERS 15:20
DX: R40.0 Somnolence (principal); I10 Essential (primary) hypertension; Z79.899 Other long term (current) drug therapy
CPT/HCPCS: 36415; 70450; 71045; 80053; 80306; 80307; 81003; 81015; 82550; 83605; 84443; 84484; 85025; 93005; 94760; 96360; 96361

== ENCOUNTER 2022-12-20 18:27 | Emergency (ER) | payer OTHER | END 2022-12-20 19:50 | disposition home or self-care (01) | LOC: ERS 18:27 | DX: Z45.2 Encounter for adjustment and management of vascular access device (principal); I10 Essential (primary) hypertension; F17.210 Nicotine dependence, cigarettes, uncomplicated | CPT/HCPCS: 99283 ==

== ENCOUNTER 2023-04-10 12:49 | Outpatient (CLI) | payer OTHER | END 2023-04-10 12:50 | disposition home or self-care (01) | LOC: CT 12:49 | PROVIDERS: ATTEND Internal Medicine Hematology & Oncology | DX: C18.4 Malignant neoplasm of transverse colon (principal); R91.1 Solitary pulmonary nodule; M79.9 Soft tissue disorder, unspecified | CPT/HCPCS: 71260; 74177; Q9967 ==

== ENCOUNTER 2023-07-24 10:14 | Outpatient (CLI) | payer OTHER ==
[2023-07-24] MEDS ORDERED: Iopamidol 370 76% 100 ML VIAL ONE (13:51)
== END 2023-07-24 10:15 | disposition home or self-care (01) ==
LOC: BICCT 10:14
PROVIDERS: ATTEND Internal Medicine Hematology & Oncology
DX: C18.4 Malignant neoplasm of transverse colon (principal); R91.8 Other nonspecific abnormal finding of lung field; N28.1 Cyst of kidney, acquired; K44.9 Diaphragmatic hernia without obstruction or gangrene; K76.89 Other specified diseases of liver; R59.0 Localized enlarged lymph nodes; Z98.890 Other specified postprocedural states
CPT/HCPCS: 71260; 74177; Q9967

== ENCOUNTER 2023-09-14 09:25 | Inpatient (IN) | payer OTHER ==
[2023-09-14] MEDS ORDERED: Morphine 4 MG/ML VIAL ONE ×2 (10:12→14:06)
[2023-09-14] MEDS ORDERED: Ondansetron PF 4 MG/2 ML Vial ONE (10:12)
[2023-09-14 10:28] LABS: #Monocytes 0.4 thou/uL (0.11-0.59); #Neutrophils 6.9 thou/uL (1.40-6.50); %Basophils 0.4 % (0.0-1.0); %Eosinophils 0.2 % (0.0-10.0); %Lymphocytes 14.5 % (21.0-51.0); %Monocytes 4.2 % (0.0-10.0); %Neutrophils 80.5 % (42.0-75.0); Hematocrit 44.9 % (36.0-47.0); Mean Corpuscular HGB CONC 33.4 g/dL (32.0-36.0); Mean Corpuscular Hemoglobin 31.4 pg (27.0-31.0); Mean Corpuscular Volume 93.9 fl (78.0-98.0); Mean Platelet Volume 9.2 fL (7.4-10.4); Platelet Count 228 10x3/uL (130-400); RBC Distribution Width 15.3 % (11.5-14.5); Red Blood Cell (RBC) Count 4.78 mill/uL (4.20-5.40); White Blood Cell (WBC) Count 8.5 10x3/uL (4.8-10.8)
[2023-09-14 10:55] LABS: ALT (SGPT) 14 U/L (8-55); AST (SGOT) 26 U/L (5-34); Albumin 4.4 g/dL (3.4-4.8); Alkaline Phosphatase 141 U/L (40-110); Anion Gap 18 mmol/L (10-20); BUN (Urea Nitrogen) 14 mg/dL (9.8-20.1); Bilirubin, Total 0.9 mg/dL (0.2-1.2); Calc. Creatinine Clearance 0 mL/min (70-130); Calcium 9.8 mg/dL (7.8-10.44); Carbon Dioxide 25 mmol/L (23-31); Chloride 101 mmol/L (98-107); Estimated GFR 56; Globulin 4.7 g/dL (2.4-3.5); Glucose 107 mg/dL (80-115); Lipase 8 U/L (8-78); Potassium 4.9 mmol/L (3.5-5.1); Protein, Total 9.1 g/dL (5.8-8.1); Sodium 139 mmol/L (136-145)
[2023-09-14 10:57] LABS: Troponin I Less than 0.010 ng/mL (< 0.028)
[2023-09-14 11:08] LABS: Bacteria/HPF None Seen HPF (None Seen); Bilirubin Negative (Negative); Blood, Urine Negative (Negative); CAUTI Indications for Culture Immunosuppressed; Clarity Clear (Clear); Glucose, Urine (Dipstick) Normal (Negative); Ketone, Urine Negative (Negative); Leukocyte 250 Leu/uL (Negative); Nitrite Negative (Negative); Protein, Urine (Dipstick) 10 mg/dL (Neg-Trace); RBC/HPF 0-3 HPF (0-3); Specific Gravity, Urine 1.013 (1.002-1.036); Squamous Epithelial 0-3 HPF (0-3); Urobilinogen Normal mg/dL (Less than 2)
[2023-09-14 11:12] LABS: Urine Culture Reflex Yes Yes
[2023-09-14] MEDS ORDERED: Iopamidol-370 76% 500 ML MDV (1 ML CHARGE) ONE (12:31)
[2023-09-14 13:36] LABS: Lactic Acid 3.9 mmol/L (0.5-2.2)
[2023-09-14] MEDS ORDERED: cefTRIAXone (ROCEPHIN) 2 GM VIAL ONE (14:04)
[2023-09-14] MEDS ORDERED: Sodium Chloride 0.9% 100 ML ONE (14:04)
[2023-09-14] MEDS ORDERED: Guaifenesin DM 100-10/5 ML UDCUP PO PRN (14:59)
[2023-09-14] MEDS ORDERED: Bisacodyl 10 MG SUPP PR PRN (14:59)
[2023-09-14] MEDS ORDERED: HYDROcodone/Acetaminophen 5/325 mg Tablet PO PRN (14:59)
[2023-09-14] MEDS ORDERED: Ondansetron PF 4 MG/2 ML Vial IVP PRN (14:59)
[2023-09-14] MEDS ORDERED: Acetaminophen 325 MG TAB PO PRN (14:59)
[2023-09-14 15:51] VITALS: BMI 25.3
[2023-09-14] MEDS: Sodium Chloride 0.9% 1,000 ML IV SCH (16:17)
[2023-09-14] MEDS ORDERED: cloNIDine 0.1 MG TAB PO SCH (16:45)
[2023-09-14] MEDS: Vancomycin (BATCH) 1.25 GM in Premix 1 BAG IVPB SCH (18:17)
[2023-09-14] MEDS ORDERED: Vancomycin 1 GM in Sodium Chloride 0.9% 250 ML 250 ML IVPB SCH (21:00)
[2023-09-14] MEDS: Pantoprazole 40 MG VIAL IVP SCH (21:23)
[2023-09-14] MEDS: Metoprolol Tartrate 25 MG TAB PO SCH (21:23)
[2023-09-14] MEDS: Cefepime 1 GM in Sodium Chloride 0.9% 100 ML IVPB SCH (21:23)
[2023-09-14] MEDS: Senokot S 8.6-50 MG TAB PO SCH ×2 (21:24→21:25)
[2023-09-14] MEDS: DULoxetine 60 MG CAP PO SCH (21:24)
[2023-09-14] MEDS: Morphine 2 MG/ML VIAL SLOW IVP PRN (21:28)
[2023-09-15 07:12] LABS: Anion Gap 12 mmol/L (10-20); BUN (Urea Nitrogen) 13 mg/dL (9.8-20.1); Calc. Creatinine Clearance 69 mL/min (70-130); Calcium 8.2 mg/dL (7.8-10.44); Carbon Dioxide 21 mmol/L (23-31); Chloride 111 mmol/L (98-107); Estimated GFR 75; Glucose 96 mg/dL (80-115); Potassium 3.3 mmol/L (3.5-5.1); Sodium 141 mmol/L (136-145)
[2023-09-15] MEDS: Levothyroxine Sodium 25 MCG TAB PO SCH (08:27)
[2023-09-15] MEDS: Enoxaparin 40 MG (0.4 mL) SYRINGE SC SCH (08:27)
[2023-09-15] MEDS: Gabapentin 300 MG CAP PO SCH ×3 (08:27→20:07)
[2023-09-15] MEDS: Senokot S 8.6-50 MG TAB PO SCH ×2 (08:28→20:07)
[2023-09-15] MEDS: Cefepime 1 GM in Sodium Chloride 0.9% 100 ML IVPB SCH ×2 (08:28→20:06)
[2023-09-15] MEDS: Amlodipine 5 MG TAB PO SCH (08:28)
[2023-09-15] MEDS: Pantoprazole 40 MG VIAL IVP SCH (08:28)
[2023-09-15] MEDS: Metoprolol Tartrate 25 MG TAB PO SCH ×2 (08:30→20:08)
[2023-09-15 09:15] LABS: #Eosinphils 0.2 thou/uL (0.0-0.7); #Monocytes 0.2 thou/uL (0.11-0.59); #Neutrophils 1.8 thou/uL (1.40-6.50); %Basophils 0.5 % (0.0-1.0); %Eosinophils 3.7 % (0.0-10.0); %Lymphocytes 46.6 % (21.0-51.0); %Monocytes 4.7 % (0.0-10.0); %Neutrophils 44.5 % (42.0-75.0); Mean Corpuscular HGB CONC 33.2 g/dL (32.0-36.0); Mean Corpuscular Hemoglobin 31.8 pg (27.0-31.0); Mean Corpuscular Volume 95.8 fl (78.0-98.0); Mean Platelet Volume 9.8 fL (7.4-10.4); Platelet Count 181 10x3/uL (130-400); RBC Distribution Width 15.1 % (11.5-14.5); Red Blood Cell (RBC) Count 3.55 mill/uL (4.20-5.40); White Blood Cell (WBC) Count 4.1 10x3/uL (4.8-10.8)
[2023-09-15 09:16] LABS: Hemoglobin 11.3 g/dL (12.0-16.0)
[2023-09-15] MEDS ORDERED: hydrOXYzine 25 MG TAB PO PRN (11:43)
[2023-09-15] MEDS ORDERED: traMADol HCl 50 MG TAB PO PRN (11:43)
[2023-09-15] MEDS ORDERED: Potassium Chloride 20 MEQ TAB PO SCH (12:15)
[2023-09-15] MEDS: Morphine 2 MG/ML VIAL SLOW IVP PRN ×2 (12:31→20:11)
[2023-09-15] MEDS: Sodium Chloride 0.9% 1,000 ML IV SCH (17:48)
[2023-09-15] MEDS: Potassium Chloride 20 MEQ TAB PO SCH (17:54)
[2023-09-15] MEDS: Vancomycin (BATCH) 1.25 GM in Premix 1 BAG IVPB SCH (17:55)
[2023-09-15] MEDS ORDERED: hydrALAZINE 20 MG/ML VIAL SLOW IVP PRN (18:55)
[2023-09-15] MEDS ORDERED: hydrALAZINE 20 MG/ML VIAL SLOW IVP SCH (19:00)
[2023-09-15] MEDS: tiZANidine HCl 4 MG TAB PO SCH (20:08)
[2023-09-15] MEDS: DULoxetine 60 MG CAP PO SCH (20:08)
[2023-09-16] MEDS: Levothyroxine Sodium 25 MCG TAB PO SCH (05:29)
[2023-09-16] MEDS: Cefepime 1 GM in Sodium Chloride 0.9% 100 ML IVPB SCH ×2 (07:38→19:57)
[2023-09-16] MEDS: Enoxaparin 40 MG (0.4 mL) SYRINGE SC SCH (07:39)
[2023-09-16] MEDS: tiZANidine HCl 4 MG TAB PO SCH ×2 (07:40→19:58)
[2023-09-16] MEDS: Amlodipine 5 MG TAB PO SCH (07:40)
[2023-09-16] MEDS: Senokot S 8.6-50 MG TAB PO SCH ×2 (07:40→19:54)
[2023-09-16] MEDS: Gabapentin 300 MG CAP PO SCH ×3 (07:40→19:58)
[2023-09-16] MEDS: Potassium Chloride 20 MEQ TAB PO SCH (07:41)
[2023-09-16] MEDS: Metoprolol Tartrate 25 MG TAB PO SCH ×2 (07:41→20:00)
[2023-09-16] MEDS: Aspirin 81 mg Enteric Coated Tablet PO SCH (07:41)
[2023-09-16 08:50] LABS: #Eosinphils 0.2 thou/uL (0.0-0.7); #Monocytes 0.2 thou/uL (0.11-0.59); #Neutrophils 1.1 thou/uL (1.40-6.50); %Basophils 0.6 % (0.0-1.0); %Eosinophils 4.8 % (0.0-10.0); %Lymphocytes 56.1 % (21.0-51.0); %Monocytes 4.5 % (0.0-10.0); Hematocrit 36.6 % (36.0-47.0); Hemoglobin 11.9 g/dL (12.0-16.0); Mean Corpuscular HGB CONC 32.5 g/dL (32.0-36.0); Mean Corpuscular Hemoglobin 31.3 pg (27.0-31.0); Mean Corpuscular Volume 96.3 fl (78.0-98.0); Mean Platelet Volume 10.1 fL (7.4-10.4); Platelet Count 212 10x3/uL (130-400); RBC Distribution Width 14.9 % (11.5-14.5); White Blood Cell (WBC) Count 3.4 10x3/uL (4.8-10.8)
[2023-09-16 09:25] LABS: ALT (SGPT) Less than 7 U/L (8-55); AST (SGOT) 11 U/L (5-34); Albumin 3.4 g/dL (3.4-4.8); Alkaline Phosphatase 96 U/L (40-110); Anion Gap 10 mmol/L (10-20); BUN (Urea Nitrogen) 13 mg/dL (9.8-20.1); Bilirubin, Total 1.1 mg/dL (0.2-1.2); Calc. Creatinine Clearance 70 mL/min (70-130); Calcium 8.4 mg/dL (7.8-10.44); Carbon Dioxide 20 mmol/L (23-31); Chloride 111 mmol/L (98-107); Estimated GFR 76; Globulin 2.8 g/dL (2.4-3.5); Glucose 98 mg/dL (80-115); Potassium 4.2 mmol/L (3.5-5.1); Protein, Total 6.2 g/dL (5.8-8.1); Sodium 137 mmol/L (136-145)
[2023-09-16 17:13] LABS: Vancomycin, Trough 7.8 ug/mL
[2023-09-16] MEDS: DULoxetine 60 MG CAP PO SCH (19:59)
[2023-09-16] MEDS: Morphine 2 MG/ML VIAL SLOW IVP PRN (19:59)
[2023-09-17] MEDS: Morphine 2 MG/ML VIAL SLOW IVP PRN (00:21)
[2023-09-17] MEDS ORDERED: Lidocaine 2% Viscous Solution 10 ML, Aluminum & Magnesium Hydroxide 30 ML SSW SCH (00:30)
[2023-09-17] MEDS: Levothyroxine Sodium 25 MCG TAB PO SCH (05:23)
[2023-09-17 06:11] LABS: #Eosinphils 0.2 thou/uL (0.0-0.7); #Monocytes 0.2 thou/uL (0.11-0.59); #Neutrophils 1.1 thou/uL (1.40-6.50); %Basophils 0.9 % (0.0-1.0); %Eosinophils 6.3 % (0.0-10.0); %Lymphocytes 55.8 % (21.0-51.0); %Monocytes 5.4 % (0.0-10.0); %Neutrophils 31.3 % (42.0-75.0); Hematocrit 34.2 % (36.0-47.0); Hemoglobin 11.4 g/dL (12.0-16.0); Mean Corpuscular HGB CONC 33.3 g/dL (32.0-36.0); Mean Corpuscular Hemoglobin 31.7 pg (27.0-31.0); Platelet Count 194 10x3/uL (130-400); RBC Distribution Width 14.7 % (11.5-14.5); White Blood Cell (WBC) Count 3.4 10x3/uL (4.8-10.8)
[2023-09-17 07:29] VITALS: BP 128/73; TEMP 97.9
[2023-09-17] MEDS: Aspirin 81 mg Enteric Coated Tablet PO SCH (08:26)
[2023-09-17] MEDS: Gabapentin 300 MG CAP PO SCH (08:27)
[2023-09-17] MEDS: Senokot S 8.6-50 MG TAB PO SCH (08:27)
[2023-09-17] MEDS: tiZANidine HCl 4 MG TAB PO SCH (08:27)
[2023-09-17] MEDS: Metoprolol Tartrate 25 MG TAB PO SCH (08:27)
[2023-09-17] MEDS: Enoxaparin 40 MG (0.4 mL) SYRINGE SC SCH (08:28)
[2023-09-17] MEDS: Cefepime 1 GM in Sodium Chloride 0.9% 100 ML IVPB SCH (08:28)
[2023-09-17] MEDS: Amlodipine 5 MG TAB PO SCH (08:28)
[2023-09-17] MEDS ORDERED: Potassium Chloride 20 MEQ TAB PO SCH (09:00)
== END 2023-09-17 13:22 | disposition home or self-care (01) | DRG 392 ==
LOC: ERS 09:25 → T4-B 15:45 → OBSVTOIN 09-15 11:42
PROVIDERS: ADMIT Internal Medicine; ATTEND Family Medicine
DX: K29.70 Gastritis, unspecified, without bleeding (principal); E87.20 Acidosis, unspecified; C18.9 Malignant neoplasm of colon, unspecified; D84.821 Immunodeficiency due to drugs; R11.2 Nausea with vomiting, unspecified; E86.0 Dehydration; I10 Essential (primary) hypertension; I25.10 Atherosclerotic heart disease of native coronary artery without angina pectoris; F17.210 Nicotine dependence, cigarettes, uncomplicated; E03.9 Hypothyroidism, unspecified; Z98.890 Other specified postprocedural states; Z79.82 Long term (current) use of aspirin; Z79.899 Other long term (current) drug therapy; Z98.51 Tubal ligation status
CPT/HCPCS: 36415; 74177; 80048; 80053; 80202; 81001; 83605; 83690; 84484; 85025; 87040; 87077; 87086; 87149; 87186; 93005; 96361; 96365; 96372; 96375; 96376; C9113; G0378; J0360; J0692; J0696; J1642; J1650; J2270; J2272; J2405; J3370; J3490; J7050; Q9967

== ENCOUNTER 2023-09-27 20:14 | Inpatient (IN) | payer OTHER ==
[~2023-09-27 20:14] MED LIST changes: -Iopamidol 370 76% 100 ML VIAL ONE; +Iopamidol-370 76% 500 ML MDV (1 ML CHARGE) ONE
[2023-09-27] MEDS ORDERED: Morphine 4 MG/ML VIAL ONE (21:02)
[2023-09-27 21:17] LABS: #Eosinphils 0.1 thou/uL (0.0-0.7); #Monocytes 0.3 thou/uL (0.11-0.59); #Neutrophils 4.7 thou/uL (1.40-6.50); %Basophils 0.1 % (0.0-1.0); %Monocytes 3.7 % (0.0-10.0); %Neutrophils 70.1 % (42.0-75.0); Hematocrit 41.9 % (36.0-47.0); Hemoglobin 13.8 g/dL (12.0-16.0); Mean Corpuscular HGB CONC 32.9 g/dL (32.0-36.0); Mean Corpuscular Hemoglobin 31.2 pg (27.0-31.0); Mean Corpuscular Volume 94.6 fl (78.0-98.0); Platelet Count 288 10x3/uL (130-400); RBC Distribution Width 15.6 % (11.5-14.5); Red Blood Cell (RBC) Count 4.43 mill/uL (4.20-5.40); White Blood Cell (WBC) Count 6.7 10x3/uL (4.8-10.8)
[2023-09-27 21:43] LABS: ALT (SGPT) 20 U/L (8-55); AST (SGOT) 20 U/L (5-34); Albumin 4.1 g/dL (3.4-4.8); Alkaline Phosphatase 120 U/L (40-110); Anion Gap 14 mmol/L (10-20); BUN (Urea Nitrogen) 16 mg/dL (9.8-20.1); Bilirubin, Total 0.6 mg/dL (0.2-1.2); Calc. Creatinine Clearance 0 mL/min (70-130); Calcium 9.2 mg/dL (7.8-10.44); Carbon Dioxide 25 mmol/L (23-31); Chloride 104 mmol/L (98-107); Estimated GFR 67; Globulin 3.5 g/dL (2.4-3.5); Glucose 104 mg/dL (80-115); Lipase 10 U/L (8-78); Potassium 3.7 mmol/L (3.5-5.1); Protein, Total 7.6 g/dL (5.8-8.1); Sodium 139 mmol/L (136-145)
[2023-09-27 21:50] LABS: Troponin I Less than 0.010 ng/mL (< 0.028)
[2023-09-28] MEDS: Sodium Chloride 0.9% 1,000 ML IV SCH ×2 (01:37→10:44)
[2023-09-28] MEDS: Ondansetron PF 4 MG/2 ML Vial IVP PRN ×3 (01:41→15:09)
[2023-09-28] MEDS: Morphine 4 MG/ML VIAL SLOW IVP PRN ×3 (01:46→10:44)
[2023-09-28] MEDS: hydrALAZINE 20 MG/ML VIAL SLOW IVP PRN ×5 (01:49→20:15)
[2023-09-28 02:22] VITALS: BMI 25.0
[2023-09-28 04:11] LABS: #Eosinphils 0.1 thou/uL (0.0-0.7); #Monocytes 0.4 thou/uL (0.11-0.59); #Neutrophils 2.4 thou/uL (1.40-6.50); %Basophils 0.3 % (0.0-1.0); %Eosinophils 1.3 % (0.0-10.0); %Lymphocytes 51.6 % (21.0-51.0); %Monocytes 6.4 % (0.0-10.0); %Neutrophils 40.2 % (42.0-75.0); Hematocrit 41.5 % (36.0-47.0); Hemoglobin 13.3 g/dL (12.0-16.0); Mean Corpuscular Hemoglobin 31.1 pg (27.0-31.0); Mean Platelet Volume 9.3 fL (7.4-10.4); Platelet Count 261 10x3/uL (130-400); RBC Distribution Width 15.6 % (11.5-14.5); Red Blood Cell (RBC) Count 4.28 mill/uL (4.20-5.40); White Blood Cell (WBC) Count 6.1 10x3/uL (4.8-10.8)
[2023-09-28 04:38] LABS: Anion Gap 15 mmol/L (10-20); BUN (Urea Nitrogen) 13 mg/dL (9.8-20.1); Calc. Creatinine Clearance 74 mL/min (70-130); Carbon Dioxide 22 mmol/L (23-31); Chloride 107 mmol/L (98-107); Estimated GFR 83; Glucose 97 mg/dL (80-115); Potassium 3.8 mmol/L (3.5-5.1); Sodium 140 mmol/L (136-145)
[2023-09-28] MEDS: Pantoprazole 40 MG VIAL IVP SCH (08:44)
[2023-09-28] MEDS: Lactated Ringer's 1,000 ML IV SCH (14:15)
[2023-09-28] MEDS: Morphine 2 MG/ML VIAL SLOW IVP PRN ×2 (15:09→20:18)
[2023-09-28] MEDS: Dicyclomine 10 MG/5 ML ORAL SOLN UD CUP PO SCH ×2 (16:23→20:19)
[2023-09-28] MEDS: Metoclopramide HCl 10 MG (2 mL) VIAL IVP SCH ×2 (16:23→20:17)
[2023-09-29] MEDS: Lactated Ringer's 1,000 ML IV SCH ×2 (04:22→18:07)
[2023-09-29] MEDS: Ondansetron PF 4 MG/2 ML Vial IVP PRN ×2 (04:22→23:29)
[2023-09-29] MEDS: Morphine 2 MG/ML VIAL SLOW IVP PRN ×4 (04:37→23:28)
[2023-09-29 07:03] LABS: #Monocytes 0.3 thou/uL (0.11-0.59); #Neutrophils 5.3 thou/uL (1.40-6.50); %Basophils 0.1 % (0.0-1.0); %Eosinophils 0.6 % (0.0-10.0); %Lymphocytes 18.3 % (21.0-51.0); %Monocytes 4.8 % (0.0-10.0); %Neutrophils 76.1 % (42.0-75.0); Hematocrit 40.6 % (36.0-47.0); Hemoglobin 13.3 g/dL (12.0-16.0); Mean Corpuscular HGB CONC 32.8 g/dL (32.0-36.0); Mean Corpuscular Hemoglobin 31.4 pg (27.0-31.0); Mean Corpuscular Volume 95.8 fl (78.0-98.0); Mean Platelet Volume 9.2 fL (7.4-10.4); Platelet Count 254 10x3/uL (130-400); RBC Distribution Width 15.4 % (11.5-14.5); Red Blood Cell (RBC) Count 4.24 mill/uL (4.20-5.40); White Blood Cell (WBC) Count 6.9 10x3/uL (4.8-10.8)
[2023-09-29 07:44] LABS: Anion Gap 16 mmol/L (10-20); BUN (Urea Nitrogen) 14 mg/dL (9.8-20.1); Calc. Creatinine Clearance 69 mL/min (70-130); Calcium 9.4 mg/dL (7.8-10.44); Carbon Dioxide 24 mmol/L (23-31); Chloride 104 mmol/L (98-107); Estimated GFR 76; Glucose 104 mg/dL (80-115); Sodium 140 mmol/L (136-145)
[2023-09-29] MEDS: Dicyclomine 10 MG/5 ML ORAL SOLN UD CUP PO SCH ×4 (09:03→20:23)
[2023-09-29] MEDS: Metoclopramide HCl 10 MG (2 mL) VIAL IVP SCH ×4 (09:04→20:24)
[2023-09-29] MEDS: Pantoprazole 40 MG VIAL IVP SCH (09:05)
[2023-09-29] MEDS: Bisacodyl 10 MG SUPP PR SCH (09:06)
[2023-09-29] MEDS: hydrALAZINE 20 MG/ML VIAL SLOW IVP PRN ×2 (09:33→23:39)
[2023-09-30] MEDS: Morphine 2 MG/ML VIAL SLOW IVP PRN (04:01)
[2023-09-30] MEDS: hydrALAZINE 20 MG/ML VIAL SLOW IVP PRN ×4 (04:02→22:08)
[2023-09-30] MEDS ORDERED: Metoprolol Tartrate 5 MG (5 mL) VIAL IVP SCH (08:15)
[2023-09-30] MEDS: Dicyclomine 10 MG/5 ML ORAL SOLN UD CUP PO SCH (08:40)
[2023-09-30] MEDS: Pantoprazole 40 MG VIAL IVP SCH (08:45)
[2023-09-30] MEDS: Lactated Ringer's 1,000 ML IV SCH (08:46)
[2023-09-30] MEDS: Metoclopramide HCl 10 MG (2 mL) VIAL IVP SCH ×4 (08:46→20:11)
[2023-09-30] MEDS: Bisacodyl 10 MG SUPP PR SCH (08:46)
[2023-09-30 09:22] LABS: #Monocytes 0.3 thou/uL (0.11-0.59); #Neutrophils 2.2 thou/uL (1.40-6.50); %Eosinophils 0.9 % (0.0-10.0); %Monocytes 9.1 % (0.0-10.0); %Neutrophils 66.7 % (42.0-75.0); Hematocrit 41.4 % (36.0-47.0); Hemoglobin 13.7 g/dL (12.0-16.0); Mean Corpuscular HGB CONC 33.1 g/dL (32.0-36.0); Mean Corpuscular Hemoglobin 31.7 pg (27.0-31.0); Mean Corpuscular Volume 95.8 fl (78.0-98.0); Mean Platelet Volume 9.4 fL (7.4-10.4); Platelet Count 220 10x3/uL (130-400); RBC Distribution Width 14.8 % (11.5-14.5); Red Blood Cell (RBC) Count 4.32 mill/uL (4.20-5.40); White Blood Cell (WBC) Count 3.3 10x3/uL (4.8-10.8)
[2023-09-30 09:48] LABS: Anion Gap 18 mmol/L (10-20); BUN (Urea Nitrogen) 12 mg/dL (9.8-20.1); Calc. Creatinine Clearance 74 mL/min (70-130); Calcium 9.6 mg/dL (7.8-10.44); Carbon Dioxide 20 mmol/L (23-31); Chloride 104 mmol/L (98-107); Estimated GFR 83; Glucose 115 mg/dL (80-115); Potassium 3.5 mmol/L (3.5-5.1); Sodium 138 mmol/L (136-145)
[2023-09-30] MEDS: Ondansetron PF 4 MG/2 ML Vial IVP PRN (10:39)
[2023-09-30] MEDS ORDERED: MD-Gastroview 120 ML BOT ONE (13:28)
[2023-09-30] MEDS: Dicyclomine 10 MG/5 ML ORAL SOLN UD CUP PER TUBE SCH ×3 (14:14→20:12)
[2023-09-30] MEDS ORDERED: Amlodipine 10 MG TAB PO SCH ×2 (15:20→20:45)
[2023-09-30] MEDS ORDERED: Metoprolol Tartrate 50 MG TAB PO SCH (15:30)
[2023-09-30] MEDS: Morphine 4 MG/ML VIAL SLOW IVP PRN ×2 (15:52→21:36)
[2023-09-30] MEDS: Metoprolol Tartrate 50 MG TAB PO SCH (20:11)
[2023-09-30] MEDS ORDERED: Senokot S 8.6-50 MG TAB PO SCH (21:00)
[2023-10-01] MEDS: Lactated Ringer's 1,000 ML IV SCH ×3 (03:59→23:50)
[2023-10-01] MEDS: Morphine 4 MG/ML VIAL SLOW IVP PRN ×4 (04:02→21:33)
[2023-10-01] MEDS: hydrALAZINE 20 MG/ML VIAL SLOW IVP PRN ×2 (04:03→20:48)
[2023-10-01 04:33] LABS: #Monocytes 0.3 thou/uL (0.11-0.59); #Neutrophils 3.7 thou/uL (1.40-6.50); %Basophils 0.2 % (0.0-1.0); %Monocytes 7.5 % (0.0-10.0); %Neutrophils 81.1 % (42.0-75.0); Hematocrit 42.8 % (36.0-47.0); Hemoglobin 14.3 g/dL (12.0-16.0); Mean Corpuscular HGB CONC 33.4 g/dL (32.0-36.0); Mean Corpuscular Hemoglobin 31.6 pg (27.0-31.0); Mean Corpuscular Volume 94.7 fl (78.0-98.0); Platelet Count 204 10x3/uL (130-400); RBC Distribution Width 14.9 % (11.5-14.5); Red Blood Cell (RBC) Count 4.52 mill/uL (4.20-5.40); White Blood Cell (WBC) Count 4.5 10x3/uL (4.8-10.8)
[2023-10-01 05:05] LABS: Anion Gap 15 mmol/L (10-20); BUN (Urea Nitrogen) 17 mg/dL (9.8-20.1); Calc. Creatinine Clearance 74 mL/min (70-130); Calcium 9.7 mg/dL (7.8-10.44); Carbon Dioxide 24 mmol/L (23-31); Chloride 106 mmol/L (98-107); Estimated GFR 83; Glucose 116 mg/dL (80-115); Potassium 3.5 mmol/L (3.5-5.1); Sodium 141 mmol/L (136-145)
[2023-10-01] MEDS ORDERED: hydrALAZINE 20 MG/ML VIAL SLOW IVP SCH ×2 (06:30→13:30)
[2023-10-01] MEDS: Metoprolol Tartrate 50 MG TAB PO SCH ×2 (08:17→20:45)
[2023-10-01] MEDS: Dicyclomine 10 MG/5 ML ORAL SOLN UD CUP PER TUBE SCH ×4 (08:17→20:45)
[2023-10-01] MEDS: Pantoprazole 40 MG VIAL IVP SCH (08:18)
[2023-10-01] MEDS ORDERED: ALPRAZolam 0.25 MG TAB PO PRN (08:42)
[2023-10-01] MEDS ORDERED: Amlodipine 10 MG TAB PO SCH (09:00)
[2023-10-01] MEDS ORDERED: NIFEdipine XL 60 MG ER.TAB PO SCH (09:00)
[2023-10-01] MEDS ORDERED: fentaNYL PF 100 MCG/2 ML SYRINGE ONE ×2 (11:06→12:47)
[2023-10-01] MEDS ORDERED: Midazolam HCl 2 mg/2 ml Vial ONE (11:06)
[2023-10-01] MEDS ORDERED: Rocuronium Bromide 10 MG/ML (10ML VIAL) ONE (11:43)
[2023-10-01] MEDS ORDERED: PROPOFOL 200 MG/20 ML VIAL ONE (11:43)
[2023-10-01] MEDS ORDERED: Lidocaine 1% PF 5 ML VIAL ONE (11:43)
[2023-10-01] MEDS ORDERED: SUGAMMADEX SODIUM 200 MG/2 ML VIAL ONE (12:28)
[2023-10-01] MEDS: hydrALAZINE 20 MG/ML VIAL SLOW IVP SCH ×3 (12:31→23:52)
[2023-10-01] MEDS ORDERED: Ondansetron PF 4 MG/2 ML Vial ONE (12:48)
[2023-10-01] MEDS ORDERED: hydrALAZINE 20 MG/ML VIAL ONE (12:55)
[2023-10-01] MEDS ORDERED: HYDROmorphone 0.5 MG/0.5 ML SYRINGE ONE (13:09)
[2023-10-01] MEDS ORDERED: HYDROmorphone 2 MG/ML VIAL SLOW IVP PRN (13:24)
[2023-10-01] MEDS ORDERED: Promethazine HCl 25 MG/ML VIAL IM PRN (13:24)
[2023-10-01] MEDS ORDERED: Ondansetron HCl/PF 4 MG/2 ML Vial IVP PRN (13:24)
[2023-10-02] MEDS: Morphine 4 MG/ML VIAL SLOW IVP PRN ×3 (02:57→14:51)
[2023-10-02 04:59] LABS: Hematocrit 35.6 % (36.0-47.0); Hemoglobin 11.7 g/dL (12.0-16.0); Manual Diff?? YES; Mean Corpuscular HGB CONC 32.9 g/dL (32.0-36.0); Mean Corpuscular Hemoglobin 31.2 pg (27.0-31.0); Mean Corpuscular Volume 94.9 fl (78.0-98.0); Mean Platelet Volume 10.2 fL (7.4-10.4); Platelet Count 187 10x3/uL (130-400); Red Blood Cell (RBC) Count 3.75 mill/uL (4.20-5.40); White Blood Cell (WBC) Count 3.8 10x3/uL (4.8-10.8)
[2023-10-02 05:04] LABS: Delete Auto Diff?? YES
[2023-10-02 05:45] LABS: Anion Gap 14 mmol/L (10-20); BUN (Urea Nitrogen) 23 mg/dL (9.8-20.1); Calc. Creatinine Clearance 69 mL/min (70-130); Calcium 8.6 mg/dL (7.8-10.44); Carbon Dioxide 25 mmol/L (23-31); Chloride 106 mmol/L (98-107); Estimated GFR 77; Glucose 114 mg/dL (80-115); Potassium 3.1 mmol/L (3.5-5.1); Sodium 142 mmol/L (136-145)
[2023-10-02 05:58] LABS: Band 20 % (5-11); CellaVision Operator ID lab.abc; Large Platelets 11.9 % (0-5); Lymphocytes 19 % (21-51); Monocytes 10 % (0-10); Neutrophil 52 % (42-75); Nucleated RBC (Manual Ct) 1 % (0); Platelet Adequacy Comment Platelets Normal; RBC Morphology Within Normal Limits; Smudge Cells 14.9 %; Total Cell Count 101
[2023-10-02] MEDS: Levothyroxine Sodium 25 MCG TAB PO SCH (06:37)
[2023-10-02] MEDS: hydrALAZINE 20 MG/ML VIAL SLOW IVP SCH ×4 (06:41→18:24)
[2023-10-02] MEDS: Pantoprazole 40 MG VIAL IVP SCH (08:37)
[2023-10-02] MEDS: Metoprolol Tartrate 50 MG TAB PO SCH ×2 (08:38→21:44)
[2023-10-02] MEDS: Dicyclomine 10 MG/5 ML ORAL SOLN UD CUP PER TUBE SCH ×4 (08:38→21:46)
[2023-10-02] MEDS: Enoxaparin 40 MG (0.4 mL) SYRINGE SC SCH (09:50)
[2023-10-02] MEDS ORDERED: Acetaminophen 500 MG TAB PO PRN (12:29)
[2023-10-02] MEDS: HYDROcodone/Acetaminophen 7.5/325 mg Tablet PO PRN ×3 (12:41→21:45)
[2023-10-02] MEDS: Lactated Ringer's 1,000 ML IV SCH ×2 (12:43→17:55)
[2023-10-02] MEDS ORDERED: Gabapentin 300 MG CAP PO SCH (13:00)
[2023-10-02] MEDS ORDERED: Potassium Chloride 20 MEQ TAB PO SCH (17:00)
[2023-10-02] MEDS: hydrOXYzine 25 MG TAB PO PRN (21:44)
[2023-10-02] MEDS: Gabapentin 300 MG CAP PO SCH (21:45)
[2023-10-02] MEDS: traZODone HCl 50 MG TAB PO SCH (21:45)
[2023-10-03] MEDS: hydrALAZINE 20 MG/ML VIAL SLOW IVP SCH ×5 (01:40→22:16)
[2023-10-03] MEDS: Cyclobenzaprine 10 MG TAB PO PRN ×2 (01:41→20:45)
[2023-10-03] MEDS: Levothyroxine Sodium 25 MCG TAB PO SCH (05:13)
[2023-10-03 05:41] LABS: Hematocrit 34.9 % (36.0-47.0); Hemoglobin 11.6 g/dL (12.0-16.0); Manual Diff?? YES; Mean Corpuscular HGB CONC 33.2 g/dL (32.0-36.0); Mean Corpuscular Hemoglobin 31.9 pg (27.0-31.0); Mean Corpuscular Volume 95.9 fl (78.0-98.0); Platelet Count 185 10x3/uL (130-400); RBC Distribution Width 15.1 % (11.5-14.5); Red Blood Cell (RBC) Count 3.64 mill/uL (4.20-5.40); White Blood Cell (WBC) Count 3.4 10x3/uL (4.8-10.8)
[2023-10-03 05:58] LABS: Anion Gap 15 mmol/L (10-20); BUN (Urea Nitrogen) 25 mg/dL (9.8-20.1); Calc. Creatinine Clearance 76 mL/min (70-130); Calcium 8.8 mg/dL (7.8-10.44); Carbon Dioxide 22 mmol/L (23-31); Chloride 106 mmol/L (98-107); Estimated GFR 85; Glucose 79 mg/dL (80-115); Potassium 3.4 mmol/L (3.5-5.1); Sodium 140 mmol/L (136-145)
[2023-10-03 06:02] LABS: Delete Auto Diff?? YES
[2023-10-03 06:35] LABS: Band 24 % (5-11); CellaVision Operator ID LAB.GE; Lymphocytes 27 % (21-51); Metamyelocyte 8 % (0-0); Monocytes 18 % (0-10); Myelocyte 1 % (0-0); Neutrophil 20 % (42-75); Nucleated RBC (Manual Ct) 1 % (0); Platelet Adequacy Comment Platelets Normal; Polychromasia SLIGHT = 2-3 cells HPF (0-2); Reactive Lymphocytes 3 % (0-10); Total Cell Count 79
[2023-10-03] MEDS ORDERED: Potassium Chloride 20 MEQ in Premix 1 BAG IVPB SCH (08:30)
[2023-10-03] MEDS: Potassium Chloride 20 MEQ in Premix 1 BAG IVPB SCH ×2 (08:59→13:37)
[2023-10-03] MEDS: Amlodipine 5 MG TAB PO SCH (09:05)
[2023-10-03] MEDS: Gabapentin 300 MG CAP PO SCH ×2 (09:05→20:45)
[2023-10-03] MEDS: Metoprolol Tartrate 50 MG TAB PO SCH ×2 (09:06→20:44)
[2023-10-03] MEDS: HYDROcodone/Acetaminophen 7.5/325 mg Tablet PO PRN ×2 (09:06→20:45)
[2023-10-03] MEDS: Dicyclomine 10 MG/5 ML ORAL SOLN UD CUP PER TUBE SCH ×4 (09:08→20:45)
[2023-10-03] MEDS: Enoxaparin 40 MG (0.4 mL) SYRINGE SC SCH (12:10)
[2023-10-03] MEDS: Pantoprazole 40 MG VIAL IVP SCH (12:11)
[2023-10-03] MEDS: Lactated Ringer's 1,000 ML IV SCH (17:58)
[2023-10-03] MEDS: Morphine 4 MG/ML VIAL SLOW IVP PRN ×2 (18:00→22:16)
[2023-10-03] MEDS: hydrOXYzine 25 MG TAB PO PRN (20:44)
[2023-10-03] MEDS: traZODone HCl 50 MG TAB PO SCH (20:44)
[2023-10-03] MEDS: Ondansetron PF 4 MG/2 ML Vial IVP PRN (22:17)
[2023-10-04] MEDS: Lactated Ringer's 1,000 ML IV SCH ×2 (02:13→14:22)
[2023-10-04] MEDS: Morphine 4 MG/ML VIAL SLOW IVP PRN (05:16)
[2023-10-04] MEDS: hydrALAZINE 20 MG/ML VIAL SLOW IVP SCH ×3 (05:17→17:48)
[2023-10-04] MEDS: Levothyroxine Sodium 25 MCG TAB PO SCH (05:17)
[2023-10-04 05:32] LABS: Hematocrit 36.1 % (36.0-47.0); Manual Diff?? YES; Mean Corpuscular HGB CONC 33.2 g/dL (32.0-36.0); Mean Corpuscular Hemoglobin 31.5 pg (27.0-31.0); Mean Corpuscular Volume 94.8 fl (78.0-98.0); Mean Platelet Volume 9.8 fL (7.4-10.4); Platelet Count 233 10x3/uL (130-400); RBC Distribution Width 15.1 % (11.5-14.5); Red Blood Cell (RBC) Count 3.81 mill/uL (4.20-5.40); White Blood Cell (WBC) Count 4.6 10x3/uL (4.8-10.8)
[2023-10-04 05:39] LABS: Delete Auto Diff?? YES
[2023-10-04 06:02] LABS: Anion Gap 13 mmol/L (10-20); BUN (Urea Nitrogen) 21 mg/dL (9.8-20.1); Calc. Creatinine Clearance 78 mL/min (70-130); Calcium 8.6 mg/dL (7.8-10.44); Carbon Dioxide 25 mmol/L (23-31); Chloride 106 mmol/L (98-107); Estimated GFR 89; Glucose 107 mg/dL (80-115); Magnesium 2.1 mg/dL (1.6-2.6); Potassium 2.9 mmol/L (3.5-5.1); Sodium 141 mmol/L (136-145)
[2023-10-04] MEDS: Potassium Chloride 20 MEQ in Premix 1 BAG IVPB SCH ×3 (06:36→09:03)
[2023-10-04 07:39] LABS: Band 16 % (5-11); Burr Cells SLIGHT = 2-5 cells HPF (0-1); CellaVision Operator ID LAB.KW3; Eosinophils 2 % (0-10); Large Platelets 4.9 % (0-5); Lymphocytes 20 % (21-51); Monocytes 26 % (0-10); Neutrophil 35 % (42-75); Platelet Adequacy Comment Platelets Normal; Polychromasia SLIGHT = 2-3 cells HPF (0-2); Reactive Lymphocytes 2 % (0-10); Schistocytes SLIGHT = 2-5 cells HPF (0-1); Smudge Cells 15.7 %; Total Cell Count 102
[2023-10-04] MEDS: Amlodipine 5 MG TAB PO SCH (09:00)
[2023-10-04] MEDS: Metoprolol Tartrate 50 MG TAB PO SCH ×2 (09:00→20:29)
[2023-10-04] MEDS: Pantoprazole 40 MG VIAL IVP SCH (09:01)
[2023-10-04] MEDS: Enoxaparin 40 MG (0.4 mL) SYRINGE SC SCH (09:01)
[2023-10-04] MEDS: Gabapentin 300 MG CAP PO SCH ×2 (09:01→20:29)
[2023-10-04] MEDS: Dicyclomine 10 MG/5 ML ORAL SOLN UD CUP PER TUBE SCH ×4 (09:02→20:44)
[2023-10-04] MEDS: hydrALAZINE 20 MG/ML VIAL SLOW IVP PRN ×2 (09:15→20:43)
[2023-10-04] MEDS: HYDROcodone/Acetaminophen 7.5/325 mg Tablet PO PRN ×3 (09:15→22:38)
[2023-10-04] MEDS: Ondansetron PF 4 MG/2 ML Vial IVP PRN (09:31)
[2023-10-04] MEDS ORDERED: Potassium Chloride 20 MEQ TAB PO SCH (11:30)
[2023-10-04 14:44] LABS: Anion Gap 12 mmol/L (10-20); BUN (Urea Nitrogen) 19 mg/dL (9.8-20.1); Calc. Creatinine Clearance 77 mL/min (70-130); Calcium 8.8 mg/dL (7.8-10.44); Carbon Dioxide 24 mmol/L (23-31); Chloride 107 mmol/L (98-107); Estimated GFR 88; Glucose 126 mg/dL (80-115); Potassium 3.9 mmol/L (3.5-5.1); Sodium 139 mmol/L (136-145)
[2023-10-04] MEDS: traZODone HCl 50 MG TAB PO SCH (20:29)
[2023-10-04] MEDS: hydrOXYzine 25 MG TAB PO PRN (20:49)
[2023-10-05] MEDS: hydrALAZINE 20 MG/ML VIAL SLOW IVP SCH ×4 (00:33→17:17)
[2023-10-05] MEDS: Lactated Ringer's 1,000 ML IV SCH ×3 (00:38→12:45)
[2023-10-05 05:04] LABS: Hematocrit 35.6 % (36.0-47.0); Hemoglobin 11.8 g/dL (12.0-16.0); Manual Diff?? YES; Mean Corpuscular HGB CONC 33.1 g/dL (32.0-36.0); Mean Corpuscular Hemoglobin 31.8 pg (27.0-31.0); Mean Platelet Volume 9.7 fL (7.4-10.4); Platelet Count 256 10x3/uL (130-400); RBC Distribution Width 15.1 % (11.5-14.5); Red Blood Cell (RBC) Count 3.71 mill/uL (4.20-5.40); White Blood Cell (WBC) Count 6.7 10x3/uL (4.8-10.8)
[2023-10-05 05:11] LABS: Delete Auto Diff?? YES
[2023-10-05 05:39] LABS: Anion Gap 12 mmol/L (10-20); BUN (Urea Nitrogen) 16 mg/dL (9.8-20.1); Calc. Creatinine Clearance 84 mL/min (70-130); Calcium 8.6 mg/dL (7.8-10.44); Carbon Dioxide 25 mmol/L (23-31); Chloride 105 mmol/L (98-107); Estimated GFR 97; Glucose 92 mg/dL (80-115); Potassium 3.2 mmol/L (3.5-5.1); Sodium 139 mmol/L (136-145)
[2023-10-05] MEDS: Levothyroxine Sodium 25 MCG TAB PO SCH (06:26)
[2023-10-05] MEDS: HYDROcodone/Acetaminophen 7.5/325 mg Tablet PO PRN ×2 (06:26→19:40)
[2023-10-05 07:02] LABS: Band 12 % (5-11); Eosinophils 1 % (0-10); Lymphocytes 42 % (21-51); Monocytes 10 % (0-10); Neutrophil 35 % (42-75); Platelet Adequacy Comment Appears Adequate; RBC Morph Comment Within Normal Limits
[2023-10-05] MEDS ORDERED: MD-Gastroview 120 ML BOT ONE (08:49)
[2023-10-05] MEDS: Enoxaparin 40 MG (0.4 mL) SYRINGE SC SCH (09:41)
[2023-10-05] MEDS: Metoprolol Tartrate 50 MG TAB PO SCH ×2 (09:41→19:39)
[2023-10-05] MEDS: Pantoprazole 40 MG VIAL IVP SCH (09:41)
[2023-10-05] MEDS: Dicyclomine 10 MG/5 ML ORAL SOLN UD CUP PER TUBE SCH ×4 (09:41→19:41)
[2023-10-05] MEDS: Amlodipine 10 MG TAB PO SCH (09:41)
[2023-10-05] MEDS: Gabapentin 300 MG CAP PO SCH ×2 (09:41→19:39)
[2023-10-05] MEDS: Potassium Chloride 20 MEQ in Premix 1 BAG IVPB SCH ×2 (09:43→12:34)
[2023-10-05] MEDS: Potassium Chloride 20 MEQ TAB PO SCH (17:18)
[2023-10-05] MEDS: traZODone HCl 50 MG TAB PO SCH (19:39)
[2023-10-06] MEDS: hydrALAZINE 20 MG/ML VIAL SLOW IVP SCH ×5 (00:34→23:00)
[2023-10-06] MEDS: Lactated Ringer's 1,000 ML IV SCH ×2 (03:50→12:33)
[2023-10-06 05:22] LABS: Hematocrit 35.1 % (36.0-47.0); Hemoglobin 11.8 g/dL (12.0-16.0); Manual Diff?? YES; Mean Corpuscular HGB CONC 33.6 g/dL (32.0-36.0); Mean Corpuscular Hemoglobin 31.6 pg (27.0-31.0); Mean Corpuscular Volume 94.1 fl (78.0-98.0); Mean Platelet Volume 10.4 fL (7.4-10.4); Platelet Count 176 10x3/uL (130-400); Red Blood Cell (RBC) Count 3.73 mill/uL (4.20-5.40); White Blood Cell (WBC) Count 6.1 10x3/uL (4.8-10.8)
[2023-10-06] MEDS: HYDROcodone/Acetaminophen 7.5/325 mg Tablet PO PRN ×2 (05:22→17:13)
[2023-10-06 05:23] LABS: Delete Auto Diff?? YES
[2023-10-06] MEDS: Levothyroxine Sodium 25 MCG TAB PO SCH (05:23)
[2023-10-06 05:49] LABS: Anion Gap 11 mmol/L (10-20); BUN (Urea Nitrogen) 12 mg/dL (9.8-20.1); Calc. Creatinine Clearance 83 mL/min (70-130); Calcium 8.3 mg/dL (7.8-10.44); Carbon Dioxide 23 mmol/L (23-31); Chloride 106 mmol/L (98-107); Estimated GFR 95; Glucose 87 mg/dL (80-115); Potassium 4.1 mmol/L (3.5-5.1); Sodium 136 mmol/L (136-145)
[2023-10-06 05:58] LABS: Band 10 % (5-11); CellaVision Operator ID LAB.CLH1; Eosinophils 2 % (0-10); Hypochromia SLIGHT = 6-15 cells HPF (0-5); Large Platelets 4.8 % (0-5); Lymphocytes 54 % (21-51); Monocytes 7 % (0-10); Neutrophil 27 % (42-75); Nucleated RBC (Manual Ct) 2 % (0); Platelet Adequacy Comment Platelets Normal; Polychromasia SLIGHT = 2-3 cells HPF (0-2); Reactive Lymphocytes 1 % (0-10); Total Cell Count 105
[2023-10-06] MEDS: Metoprolol Tartrate 50 MG TAB PO SCH ×2 (08:58→20:36)
[2023-10-06] MEDS: Potassium Chloride 20 MEQ TAB PO SCH ×2 (08:58→17:13)
[2023-10-06] MEDS: Amlodipine 10 MG TAB PO SCH (08:58)
[2023-10-06] MEDS: Gabapentin 300 MG CAP PO SCH ×2 (08:58→20:36)
[2023-10-06] MEDS: Dicyclomine 10 MG/5 ML ORAL SOLN UD CUP PER TUBE SCH ×4 (08:58→20:35)
[2023-10-06] MEDS: Enoxaparin 40 MG (0.4 mL) SYRINGE SC SCH (08:59)
[2023-10-06] MEDS: Pantoprazole 40 MG VIAL IVP SCH (08:59)
[2023-10-06] MEDS: hydrOXYzine 25 MG TAB PO PRN (20:36)
[2023-10-06] MEDS: traZODone HCl 50 MG TAB PO SCH (20:36)
[2023-10-06] MEDS ORDERED: Calcium Carbonate 500 MG ChewTAB PO PRN (20:57)
[2023-10-06] MEDS ORDERED: Lidocaine 2% Viscous Solution 10 ML, Aluminum & Magnesium Hydroxide 30 ML SSW SCH (21:30)
[2023-10-07] MEDS: hydrALAZINE 20 MG/ML VIAL SLOW IVP SCH ×3 (04:39→13:25)
[2023-10-07] MEDS: Levothyroxine Sodium 25 MCG TAB PO SCH (04:41)
[2023-10-07] MEDS: HYDROcodone/Acetaminophen 7.5/325 mg Tablet PO PRN ×2 (04:45→13:22)
[2023-10-07 04:59] LABS: #Eosinphils 0.2 thou/uL (0.0-0.7); #Monocytes 0.9 thou/uL (0.11-0.59); #Neutrophils 1.6 thou/uL (1.40-6.50); %Basophils 0.4 % (0.0-1.0); %Eosinophils 3.1 % (0.0-10.0); %Lymphocytes 45.4 % (21.0-51.0); %Monocytes 18.2 % (0.0-10.0); %Neutrophils 32.7 % (42.0-75.0); Hemoglobin 11.8 g/dL (12.0-16.0); Mean Corpuscular HGB CONC 32.8 g/dL (32.0-36.0); Mean Corpuscular Hemoglobin 30.8 pg (27.0-31.0); Mean Platelet Volume 9.2 fL (7.4-10.4); Platelet Count 257 10x3/uL (130-400); RBC Distribution Width 14.9 % (11.5-14.5); Red Blood Cell (RBC) Count 3.83 mill/uL (4.20-5.40); White Blood Cell (WBC) Count 4.9 10x3/uL (4.8-10.8)
[2023-10-07 05:28] LABS: Anion Gap 9 mmol/L (10-20); BUN (Urea Nitrogen) 11 mg/dL (9.8-20.1); Calc. Creatinine Clearance 77 mL/min (70-130); Calcium 8.7 mg/dL (7.8-10.44); Carbon Dioxide 28 mmol/L (23-31); Chloride 105 mmol/L (98-107); Estimated GFR 88; Glucose 86 mg/dL (80-115); Sodium 138 mmol/L (136-145)
[2023-10-07] MEDS: Enoxaparin 40 MG (0.4 mL) SYRINGE SC SCH (08:12)
[2023-10-07] MEDS: Metoprolol Tartrate 50 MG TAB PO SCH (08:12)
[2023-10-07] MEDS: Amlodipine 10 MG TAB PO SCH (08:12)
[2023-10-07] MEDS: Potassium Chloride 20 MEQ TAB PO SCH (08:12)
[2023-10-07] MEDS: Pantoprazole 40 MG VIAL IVP SCH (08:13)
[2023-10-07] MEDS: Gabapentin 300 MG CAP PO SCH (08:13)
[2023-10-07] MEDS: Dicyclomine 10 MG/5 ML ORAL SOLN UD CUP PER TUBE SCH ×2 (08:17→13:22)
[2023-10-07 11:32] VITALS: BP 134/88; TEMP 98.1
== END 2023-10-07 15:58 | disposition home or self-care (01) | DRG 336 ==
LOC: ERS 20:14 → SURG B 09-28 00:02 → OBSVTOIN 09-28 15:25
PROVIDERS: ADMIT Internal Medicine; ATTEND Internal Medicine
PROC: 0DNU0ZZ Release Omentum, Open Approach (ICD-10-PCS; principal; 2023-10-01)
PROC: 0DJ60ZZ Inspection of Stomach, Open Approach (ICD-10-PCS; 2023-10-01)
PROC: 0D9670Z Drainage of Stomach with Drainage Device, Via Natural or Artificial Opening (ICD-10-PCS; 2023-10-01)
PROC: 3E0G76Z Introduction of Nutritional Substance into Upper GI, Via Natural or Artificial Opening (ICD-10-PCS; 2023-10-01)
PROC: 0DN80ZZ Release Small Intestine, Open Approach (ICD-10-PCS; 2023-10-01)
DX: K56.609 Unspecified intestinal obstruction, unspecified as to partial versus complete obstruction (principal); C18.9 Malignant neoplasm of colon, unspecified; K29.70 Gastritis, unspecified, without bleeding; I25.10 Atherosclerotic heart disease of native coronary artery without angina pectoris; Z66 Do not resuscitate; I10 Essential (primary) hypertension; E03.9 Hypothyroidism, unspecified; F17.210 Nicotine dependence, cigarettes, uncomplicated; K59.09 Other constipation; G57.90 Unspecified mononeuropathy of unspecified lower limb; E87.6 Hypokalemia; K21.9 Gastro-esophageal reflux disease without esophagitis; Z92.21 Personal history of antineoplastic chemotherapy; Z90.49 Acquired absence of other specified parts of digestive tract; Z79.890 Hormone replacement therapy; Z79.899 Other long term (current) drug therapy; Z98.51 Tubal ligation status; Z98.890 Other specified postprocedural states; Z82.49 Family history of ischemic heart disease and other diseases of the circulatory system; Z83.3 Family history of diabetes mellitus
CPT/HCPCS: 36415; 36416; 74018; 74022; 74177; 74250; 80048; 80053; 83605; 83690; 83735; 84484; 85025; 93005; 94760; 96361; 96374; 96375; 96376; A4314; C9113; G0378; J0360; J1170; J1650; J2250; J2270; J2272; J2405; J2704; J2765; J3480; J7050; J7120; Q9963; Q9967

== ENCOUNTER 2023-10-25 11:05 | Outpatient (CLI) | payer OTHER ==
[2023-10-25] MEDS ORDERED: Iopamidol-370 76% 500 ML MDV (1 ML CHARGE) ONE (13:37)
== END 2023-10-25 11:06 | disposition home or self-care (01) ==
LOC: BICCT 11:05
PROVIDERS: ATTEND Internal Medicine Hematology & Oncology
DX: C18.9 Malignant neoplasm of colon, unspecified (principal); R91.1 Solitary pulmonary nodule; N28.1 Cyst of kidney, acquired; K44.9 Diaphragmatic hernia without obstruction or gangrene; L90.5 Scar conditions and fibrosis of skin; M47.9 Spondylosis, unspecified; K76.89 Other specified diseases of liver; Z98.890 Other specified postprocedural states
CPT/HCPCS: 71260; 74177; Q9967

== ENCOUNTER 2024-01-11 08:56 | Outpatient (CLI) | payer OTHER ==
[2024-01-11] MEDS ORDERED: Iopamidol 370 76% 100 ML VIAL ONE (11:55)
== END 2024-01-11 08:57 | disposition home or self-care (01) ==
LOC: BICCT 08:56
PROVIDERS: ATTEND Internal Medicine Hematology & Oncology
DX: C18.9 Malignant neoplasm of colon, unspecified (principal); C77.2 Secondary and unspecified malignant neoplasm of intra-abdominal lymph nodes; R91.1 Solitary pulmonary nodule
CPT/HCPCS: 71260; 74177; Q9967

== ENCOUNTER 2024-02-12 09:57 | Inpatient (IN) | payer OTHER ==
[2024-02-12 10:35] LABS: #Basophils Less than 0.03 10x3/uL (0.0-0.2); %Basophils 0.5 % (0.0-1.0); %Eosinophils 4.3 % (0.0-10.0); %Lymphocytes 49.5 % (21.0-51.0); %Monocytes 8.6 % (0.0-10.0); %Neutrophils 37.1 % (42.0-75.0); Hematocrit 37.2 % (36.0-47.0); Hemoglobin 12.4 g/dL (12.0-16.0); Mean Corpuscular HGB CONC 33.3 g/dL (32.0-36.0); Mean Corpuscular Hemoglobin 32.2 pg (27.0-31.0); Mean Corpuscular Volume 96.6 fL (78.0-98.0); Mean Platelet Volume 9.6 fL (7.4-10.4); Platelet Count 208 10x3/uL (130-400); RBC Distribution Width 15.8 % (11.5-14.5); Red Blood Cell (RBC) Count 3.85 mill/uL (4.20-5.40)
[2024-02-12] MEDS ORDERED: Iopamidol-370 76% 500 ML MDV (1 ML CHARGE) ONE (10:37)
[2024-02-12 10:53] LABS: Prothrombin Time 13.6 sec (12.0-14.7)
[2024-02-12 10:58] LABS: ALT (SGPT) 14 U/L (8-55); AST (SGOT) 31 U/L (5-34); Albumin 3.5 g/dL (3.4-4.8); Alkaline Phosphatase 80 U/L (40-110); Anion Gap 10 mmol/L (10-20); BUN (Urea Nitrogen) 9 mg/dL (9.8-20.1); Bilirubin, Total 0.7 mg/dL (0.2-1.2); Calc. Creatinine Clearance 0 mL/min (70-130); Calcium 9.3 mg/dL (7.8-10.44); Carbon Dioxide 24 mmol/L (23-31); Chloride 107 mmol/L (98-107); Estimated GFR 52; Globulin 3.5 g/dL (2.4-3.5); Glucose 88 mg/dL (80-115); Lipase 13 U/L (8-78); Potassium 3.6 mmol/L (3.5-5.1); Sodium 137 mmol/L (136-145)
[2024-02-12] MEDS ORDERED: hydrALAZINE 20 MG/ML VIAL ONE (11:01)
[2024-02-12] MEDS ORDERED: Acetaminophen 500 MG TAB ONE (11:01)
[2024-02-12 11:04] LABS: Troponin I Less than 0.010 ng/mL (< 0.028)
[2024-02-12] MEDS ORDERED: Atropine Sulfate 1 mg/10 ml Syringe ONE (11:08)
[2024-02-12 14:05] LABS: T4 8.43 ug/dL (4.87-11.72)
[2024-02-12 14:21] LABS: Troponin I 0.012 ng/mL (< 0.028)
[2024-02-12] MEDS: hydrALAZINE 20 MG/ML VIAL SLOW IVP PRN (16:13)
[2024-02-12] MEDS: Sodium Chloride 0.9% 1,000 ML IV SCH (16:17)
[2024-02-12 17:09] VITALS: BMI 23.4
[2024-02-12 18:49] LABS: Troponin I Less than 0.010 ng/mL (< 0.028)
[2024-02-12] MEDS: Nitroglycerin 2% Ointment 1 INCH/1 GM Packet TOP SCH (21:58)
[2024-02-12] MEDS: Famotidine 20 MG TAB PO SCH (21:59)
[2024-02-13 05:49] LABS: #Basophils 0.04 10x3/uL (0.0-0.2); %Basophils 0.7 % (0.0-1.0); %Eosinophils 2.9 % (0.0-10.0); %Lymphocytes 33.4 % (21.0-51.0); %Monocytes 8.8 % (0.0-10.0); Hematocrit 43.2 % (36.0-47.0); Hemoglobin 13.9 g/dL (12.0-16.0); Mean Corpuscular HGB CONC 32.2 g/dL (32.0-36.0); Mean Corpuscular Volume 96.2 fL (78.0-98.0); Mean Platelet Volume 10.1 fL (7.4-10.4); Platelet Count 242 10x3/uL (130-400); RBC Distribution Width 16.3 % (11.5-14.5); Red Blood Cell (RBC) Count 4.49 mill/uL (4.20-5.40)
[2024-02-13 06:00] LABS: Anion Gap 11 mmol/L (10-20); BUN (Urea Nitrogen) 11 mg/dL (9.8-20.1); Calc. Creatinine Clearance 41 mL/min (70-130); Calcium 9.6 mg/dL (7.8-10.44); Carbon Dioxide 25 mmol/L (23-31); Chloride 107 mmol/L (98-107); Estimated GFR 46; Glucose 94 mg/dL (80-115); Potassium 3.8 mmol/L (3.5-5.1); Sodium 139 mmol/L (136-145)
[2024-02-13] MEDS: Acetaminophen 325 MG TAB PO PRN (06:16)
[2024-02-13] MEDS: Enoxaparin 40 MG (0.4 mL) SYRINGE SC SCH (09:25)
[2024-02-13] MEDS: NIFEdipine XL 30 MG ER.TAB PO SCH ×2 (11:49→20:35)
[2024-02-13] MEDS ORDERED: ALPRAZolam 0.25 MG TAB PO PRN (13:33)
[2024-02-13] MEDS: Lactated Ringer's 1,000 ML IV SCH (14:24)
[2024-02-13] MEDS: HYDROcodone/Acetaminophen 5/325 mg Tablet PO PRN (17:05)
[2024-02-13 18:23] VITALS: BMI 23.4
[2024-02-13] MEDS: traZODone HCl 50 MG TAB PO SCH (20:35)
[2024-02-13] MEDS: Gabapentin 300 MG CAP PO SCH (20:35)
[2024-02-13] MEDS: Cyclobenzaprine 10 MG TAB PO PRN (20:39)
[2024-02-14 04:47] LABS: #Basophils 0.03 10x3/uL (0.0-0.2); %Basophils 0.7 % (0.0-1.0); %Eosinophils 3.7 % (0.0-10.0); %Lymphocytes 59.1 % (21.0-51.0); %Monocytes 12.6 % (0.0-10.0); %Neutrophils 23.7 % (42.0-75.0); Hemoglobin 12.3 g/dL (12.0-16.0); Mean Corpuscular HGB CONC 32.4 g/dL (32.0-36.0); Mean Corpuscular Hemoglobin 31.9 pg (27.0-31.0); Mean Corpuscular Volume 98.4 fL (78.0-98.0); Platelet Count 225 10x3/uL (130-400); RBC Distribution Width 16.6 % (11.5-14.5); Red Blood Cell (RBC) Count 3.86 mill/uL (4.20-5.40)
[2024-02-14 05:06] LABS: Anion Gap 10 mmol/L (10-20); BUN (Urea Nitrogen) 11 mg/dL (9.8-20.1); Calc. Creatinine Clearance 43 mL/min (70-130); Carbon Dioxide 24 mmol/L (23-31); Chloride 111 mmol/L (98-107); Estimated GFR 48; Glucose 101 mg/dL (80-115); Potassium 3.7 mmol/L (3.5-5.1); Sodium 141 mmol/L (136-145)
[2024-02-14] MEDS: Levothyroxine Sodium 50 MCG TAB PO SCH (05:35)
[2024-02-14] MEDS ORDERED: Regadenoson 0.4 MG/5 ML SYRINGE ONE (11:17)
[2024-02-14] MEDS: Pantoprazole DR 40 MG TAB PO SCH (13:19)
[2024-02-14] MEDS: Famotidine 20 MG TAB PO SCH (13:19)
[2024-02-15 05:24] LABS: Anion Gap 17 mmol/L (10-20); BUN (Urea Nitrogen) 11 mg/dL (9.8-20.1); Calc. Creatinine Clearance 53 mL/min (70-130); Calcium 9.9 mg/dL (7.8-10.44); Carbon Dioxide 22 mmol/L (23-31); Chloride 108 mmol/L (98-107); Estimated GFR 61; Glucose 106 mg/dL (80-115); Potassium 4.1 mmol/L (3.5-5.1); Sodium 143 mmol/L (136-145)
[2024-02-15] MEDS: Lisinopril 20 MG TAB PO SCH (08:35)
[2024-02-15] MEDS: NIFEdipine XL 30 MG ER.TAB PO SCH (08:42)
[2024-02-15] MEDS: Carvedilol 6.25 MG TAB PO SCH (17:52)
[2024-02-16] MEDS: Sodium Chloride 0.9% 1,000 ML IV SCH (18:40)
[2024-02-16 20:12] LABS: #Basophils 0.03 10x3/uL (0.0-0.2); %Basophils 0.6 % (0.0-1.0); %Eosinophils 3.3 % (0.0-10.0); %Lymphocytes 48.1 % (21.0-51.0); %Monocytes 15.8 % (0.0-10.0); Hematocrit 35.9 % (36.0-47.0); Hemoglobin 11.7 g/dL (12.0-16.0); Mean Corpuscular HGB CONC 32.6 g/dL (32.0-36.0); Mean Corpuscular Hemoglobin 32.6 pg (27.0-31.0); Mean Platelet Volume 9.5 fL (7.4-10.4); Platelet Count 215 10x3/uL (130-400); RBC Distribution Width 16.1 % (11.5-14.5); Red Blood Cell (RBC) Count 3.59 mill/uL (4.20-5.40)
[2024-02-16 20:34] LABS: Anion Gap 14 mmol/L (10-20); BUN (Urea Nitrogen) 19 mg/dL (9.8-20.1); Calc. Creatinine Clearance 39 mL/min (70-130); Calcium 8.7 mg/dL (7.8-10.44); Carbon Dioxide 18 mmol/L (23-31); Chloride 109 mmol/L (98-107); Estimated GFR 43; Glucose 104 mg/dL (80-115); Potassium 3.8 mmol/L (3.5-5.1); Sodium 137 mmol/L (136-145)
[2024-02-17 05:11] LABS: #Basophils Less than 0.03 10x3/uL (0.0-0.2); %Basophils 0.5 % (0.0-1.0); %Eosinophils 3.1 % (0.0-10.0); %Lymphocytes 55.4 % (21.0-51.0); %Monocytes 13.3 % (0.0-10.0); %Neutrophils 27.4 % (42.0-75.0); Mean Corpuscular HGB CONC 32.4 g/dL (32.0-36.0); Mean Corpuscular Hemoglobin 31.3 pg (27.0-31.0); Mean Corpuscular Volume 96.4 fL (78.0-98.0); Mean Platelet Volume 9.7 fL (7.4-10.4); Platelet Count 243 10x3/uL (130-400); RBC Distribution Width 16.3 % (11.5-14.5); Red Blood Cell (RBC) Count 3.84 mill/uL (4.20-5.40)
[2024-02-17 05:31] LABS: Anion Gap 16 mmol/L (10-20); BUN (Urea Nitrogen) 16 mg/dL (9.8-20.1); Calc. Creatinine Clearance 48 mL/min (70-130); Calcium 9.1 mg/dL (7.8-10.44); Carbon Dioxide 19 mmol/L (23-31); Chloride 110 mmol/L (98-107); Estimated GFR 54; Glucose 98 mg/dL (80-115); Potassium 3.6 mmol/L (3.5-5.1); Sodium 141 mmol/L (136-145)
[2024-02-18 07:11] LABS: Anion Gap 16 mmol/L (10-20); BUN (Urea Nitrogen) 15 mg/dL (9.8-20.1); Calc. Creatinine Clearance 47 mL/min (70-130); Calcium 8.9 mg/dL (7.8-10.44); Carbon Dioxide 21 mmol/L (23-31); Chloride 108 mmol/L (98-107); Estimated GFR 54; Glucose 86 mg/dL (80-115); Sodium 141 mmol/L (136-145)
[2024-02-18] MEDS ORDERED: NIFEdipine XL 60 MG ER.TAB PO SCH (09:00)
[2024-02-18] MEDS: NIFEdipine XL 30 MG ER.TAB PO SCH (10:48)
[2024-02-18 12:32] VITALS: BP 115/86; TEMP 97.9
== END 2024-02-18 15:28 | disposition home or self-care (01) | DRG 305 ==
LOC: ERS 09:57 → 2SW 13:12
PROVIDERS: ADMIT Internal Medicine; ATTEND Internal Medicine
DX: I16.0 Hypertensive urgency (principal); C18.9 Malignant neoplasm of colon, unspecified; N17.9 Acute kidney failure, unspecified; H53 Visual disturbances; R00.1 Bradycardia, unspecified; Z66 Do not resuscitate; I25.10 Atherosclerotic heart disease of native coronary artery without angina pectoris; F17.210 Nicotine dependence, cigarettes, uncomplicated; E03.9 Hypothyroidism, unspecified; Z79.890 Hormone replacement therapy; Z79.899 Other long term (current) drug therapy; Z98.51 Tubal ligation status; Z90.49 Acquired absence of other specified parts of digestive tract
CPT/HCPCS: 36415; 36416; 70450; 71045; 71275; 74174; 78452; 80048; 80053; 83605; 83690; 83735; 83880; 84436; 84443; 84481; 84484; 85025; 85610; 93005; 93017; 96374; 96375; A9502; J0360; J0461; J1650; J2785; J7050; J7120; Q9967

== ENCOUNTER 2024-04-23 13:24 | Outpatient (CLI) | payer OTHER | END 2024-04-23 13:25 | disposition home or self-care (01) | LOC: BICULT 13:24 | PROVIDERS: ATTEND Internal Medicine Hematology & Oncology | DX: E04.2 Nontoxic multinodular goiter (principal); C18.4 Malignant neoplasm of transverse colon | CPT/HCPCS: 76536 ==

== ENCOUNTER 2024-06-23 12:50 | Day surgery (SDC) | payer OTHER ==
[2024-06-23] MEDS ORDERED: Lidocaine 1% PF 5 ML VIAL ONE ×2 (13:05)
== END 2024-06-23 14:15 | disposition home or self-care (01) ==
LOC: ULT 12:50
PROVIDERS: ATTEND Internal Medicine Hematology & Oncology
PROC: 0G9K3ZZ Drainage of Thyroid Gland, Percutaneous Approach (ICD-10-PCS; principal; 2024-06-23)
DX: E04.1 Nontoxic single thyroid nodule (principal); I10 Essential (primary) hypertension; I25.10 Atherosclerotic heart disease of native coronary artery without angina pectoris; I25.2 Old myocardial infarction; E07.9 Disorder of thyroid, unspecified; Z98.51 Tubal ligation status; Z98.890 Other specified postprocedural states; F17.200 Nicotine dependence, unspecified, uncomplicated; Z79.899 Other long term (current) drug therapy
CPT/HCPCS: 10005; 10006; 88173; 88305

== ENCOUNTER 2024-08-06 08:50 | Outpatient (CLI) | payer OTHER | END 2024-08-06 08:51 | disposition home or self-care (01) | LOC: BICCT 08:50 | PROVIDERS: ATTEND Internal Medicine Hematology & Oncology | DX: C18.4 Malignant neoplasm of transverse colon (principal); D50.0 Iron deficiency anemia secondary to blood loss (chronic); G62.0 Drug-induced polyneuropathy; D70.1 Agranulocytosis secondary to cancer chemotherapy; K59.00 Constipation, unspecified; K83.8 Other specified diseases of biliary tract; N32.89 Other specified disorders of bladder; R91.1 Solitary pulmonary nodule; Z90.49 Acquired absence of other specified parts of digestive tract | CPT/HCPCS: 71260; 74177 ==

== ENCOUNTER 2025-03-05 08:29 | Outpatient (CLI) | payer MEDICAID, OTHER | END 2025-03-05 08:30 | disposition home or self-care (01) | LOC: CT 08:29 | PROVIDERS: ATTEND Internal Medicine Hematology & Oncology | DX: C18.4 Malignant neoplasm of transverse colon (principal); D50.0 Iron deficiency anemia secondary to blood loss (chronic); D70.1 Agranulocytosis secondary to cancer chemotherapy; T45.1X5A Adverse effect of antineoplastic and immunosuppressive drugs, initial encounter; G62.0 Drug-induced polyneuropathy; R91.8 Other nonspecific abnormal finding of lung field; M79.9 Soft tissue disorder, unspecified; K76.9 Liver disease, unspecified; K22.89 Other specified disease of esophagus | CPT/HCPCS: 71260; 74177 ==

== ENCOUNTER 2025-03-30 05:54 | Day surgery (SDC) | payer MEDICAID ==
[2025-03-24 13:59] VITALS: BMI 17.4
[2025-03-30] MEDS ORDERED: Rocuronium Bromide 10 MG/ML (10ML VIAL) ONE (06:55)
[2025-03-30] MEDS ORDERED: PROPOFOL 20 ML ONE (06:55)
[2025-03-30] MEDS ORDERED: fentaNYL PF 100 MCG/2 ML SYRINGE ONE ×3 (06:55→09:10)
[2025-03-30] MEDS ORDERED: Lidocaine 1% PF 5 ML VIAL ONE (06:55)
[2025-03-30] MEDS ORDERED: CEFAZOLIN 2 GM VIAL ONE (07:26)
[2025-03-30] MEDS ORDERED: Ondansetron PF 4 MG/2 ML Vial ONE (07:50)
[2025-03-30] MEDS ORDERED: SUGAMMADEX SODIUM 200 MG/2 ML VIAL ONE (08:15)
[2025-03-30] MEDS ORDERED: hydrALAZINE 20 MG/ML VIAL ONE (08:32)
[2025-03-30] MEDS ORDERED: HYDROcodone/Acetaminophen 5/325 mg Tablet ONE (11:26)
== END 2025-03-30 11:50 | disposition home or self-care (01) ==
LOC: SDC 05:54
PROVIDERS: ATTEND Surgery
PROC: 0FBG0ZX Excision of Pancreas, Open Approach, Diagnostic (ICD-10-PCS; principal; 2025-03-30)
DX: C48.0 Malignant neoplasm of retroperitoneum (principal); K21.9 Gastro-esophageal reflux disease without esophagitis; Z98.51 Tubal ligation status; Z85.038 Personal history of other malignant neoplasm of large intestine; Z98.890 Other specified postprocedural states; Z79.899 Other long term (current) drug therapy
CPT/HCPCS: 88305; 88341; 88342; J0360; J0665; J1100; J2405; J2704

== ENCOUNTER 2025-04-17 16:19 | Inpatient (IN) | payer MEDICAID, OTHER ==
[2025-04-17] MEDS ORDERED: hydrALAZINE 20 MG/ML VIAL ONE (16:46)
[2025-04-17 18:01] LABS: #Basophils 0.09 10x3/uL (0.0-0.2); #Eosinophils 0.14 10x3/uL (0.0-0.7); #Monocytes 1.03 10x3/uL (0.11-0.59); #Neutrophils 5.16 10x3/uL (1.40-6.50); %Basophils 1.1 % (0.0-1.0); %Eosinophils 1.8 % (0.0-10.0); %Lymphocytes 18.3 % (21.0-51.0); %Monocytes 13.1 % (0.0-10.0); %Neutrophils 65.4 % (42.0-75.0); Hematocrit 37.6 % (36.0-47.0); Hemoglobin 11.8 g/dL (12.0-16.0); Mean Corpuscular Hemoglobin 26.8 pg (27.0-31.0); Mean Corpuscular Volume 85.5 fL (78.0-98.0); Platelet Count 336 10x3/uL (130-400); Red Blood Cell (RBC) Count 4.40 mill/uL (4.20-5.40); White Blood Cell (WBC) Count 7.88 10x3/uL (4.8-10.8)
[2025-04-17 18:17] LABS: ALT (SGPT) 8 U/L (Less than 34); AST (SGOT) 25 U/L (11-34); Albumin 3.6 g/dL (3.1-4.5); Alkaline Phosphatase 156 U/L (40-110); Anion Gap 18 mmol/L (10-20); BUN (Urea Nitrogen) 14 mg/dL (9.8-20.1); Bilirubin, Total 0.6 mg/dL (0.3-1.2); Calc. Creatinine Clearance 0 mL/min (70-130); Calcium 9.3 mg/dL (7.8-10.44); Carbon Dioxide 21 mmol/L (23-31); Chloride 102 mmol/L (98-107); Globulin 4.1 g/dL (2.4-3.5); Glucose 85 mg/dL (80-115); Potassium 3.7 mmol/L (3.5-5.1); Sodium 137 mmol/L (136-145)
[2025-04-17] MEDS ORDERED: Acetaminophen 325 MG TAB PO PRN (19:53)
[2025-04-17] MEDS ORDERED: Ondansetron PF 4 MG/2 ML Vial IVP PRN (19:53)
[2025-04-17] MEDS ORDERED: ALPRAZolam 0.25 MG TAB PO PRN (20:28)
[2025-04-17 21:51] VITALS: BMI 16.7
[2025-04-17] MEDS: Pregabalin 25 MG CAP PO SCH (22:46)
[2025-04-17] MEDS: Famotidine 20 MG TAB PO SCH (22:46)
[2025-04-17] MEDS: HYDROcodone/Acetaminophen 5/325 mg Tablet PO PRN (22:47)
[2025-04-17] MEDS: Famotidine/PF 20 mg/2ml Vial SLOW IVP SCH (22:51)
[2025-04-17] MEDS: Bisacodyl 10 MG SUPP PR SCH (23:34)
[2025-04-18 04:56] LABS: #Basophils 0.09 10x3/uL (0.0-0.2); #Eosinophils 0.36 10x3/uL (0.0-0.7); #Monocytes 1.15 10x3/uL (0.11-0.59); #Neutrophils 2.71 10x3/uL (1.40-6.50); %Basophils 1.4 % (0.0-1.0); %Eosinophils 5.5 % (0.0-10.0); %Lymphocytes 33.6 % (21.0-51.0); %Monocytes 17.6 % (0.0-10.0); %Neutrophils 41.6 % (42.0-75.0); Hematocrit 32.3 % (36.0-47.0); Hemoglobin 9.9 g/dL (12.0-16.0); Mean Corpuscular Hemoglobin 26.3 pg (27.0-31.0); Mean Corpuscular Volume 85.7 fL (78.0-98.0); Platelet Count 347 10x3/uL (130-400); Red Blood Cell (RBC) Count 3.77 mill/uL (4.20-5.40); White Blood Cell (WBC) Count 6.52 10x3/uL (4.8-10.8)
[2025-04-18 05:09] LABS: ALT (SGPT) 7 U/L (Less than 34); AST (SGOT) 21 U/L (11-34); Albumin 2.9 g/dL (3.1-4.5); Alkaline Phosphatase 120 U/L (40-110); Anion Gap 11 mmol/L (10-20); BUN (Urea Nitrogen) 14 mg/dL (9.8-20.1); Bilirubin, Total 0.4 mg/dL (0.3-1.2); Calc. Creatinine Clearance 41 mL/min (70-130); Calcium 8.8 mg/dL (7.8-10.44); Carbon Dioxide 24 mmol/L (23-31); Chloride 105 mmol/L (98-107); Globulin 3.2 g/dL (2.4-3.5); Glucose 101 mg/dL (80-115); Potassium 3.3 mmol/L (3.5-5.1); Sodium 137 mmol/L (136-145)
[2025-04-18] MEDS ORDERED: Non-Formulary Item 1 EACH (Tizanidine Hcl [Tizanidine Hcl] 2 MG Tablet) PO PRN (09:34)
[2025-04-18] MEDS ORDERED: Dicyclomine 20 MG TAB PO PRN (09:34)
[2025-04-18] MEDS: Enoxaparin 40 MG (0.4 mL) SYRINGE SC SCH (09:58)
[2025-04-18] MEDS: NIFEdipine XL 60 MG ER.TAB PO SCH (12:21)
[2025-04-18] MEDS: HYDROcodone/Acetaminophen 5/325 mg Tablet PO SCH (13:29)
[2025-04-18 14:35] VITALS: BMI 16.7
[2025-04-18] MEDS: Pregabalin 25 MG CAP PO SCH ×2 (15:37→21:00)
[2025-04-18] MEDS: ALPRAZolam 0.25 MG TAB PO PRN (21:02)
[2025-04-19 06:19] LABS: #Basophils 0.08 10x3/uL (0.0-0.2); #Eosinophils 0.38 10x3/uL (0.0-0.7); #Monocytes 1.07 10x3/uL (0.11-0.59); #Neutrophils 3.63 10x3/uL (1.40-6.50); %Basophils 1.2 % (0.0-1.0); %Eosinophils 5.6 % (0.0-10.0); %Lymphocytes 24.1 % (21.0-51.0); %Monocytes 15.7 % (0.0-10.0); %Neutrophils 53.3 % (42.0-75.0); Hematocrit 28.1 % (36.0-47.0); Hemoglobin 8.7 g/dL (12.0-16.0); Mean Corpuscular Hemoglobin 26.6 pg (27.0-31.0); Mean Corpuscular Volume 85.9 fL (78.0-98.0); Platelet Count 338 10x3/uL (130-400); Red Blood Cell (RBC) Count 3.27 mill/uL (4.20-5.40); White Blood Cell (WBC) Count 6.81 10x3/uL (4.8-10.8)
[2025-04-19 06:32] LABS: Anion Gap 12 mmol/L (10-20); BUN (Urea Nitrogen) 14 mg/dL (9.8-20.1); Calc. Creatinine Clearance 40 mL/min (70-130); Calcium 8.4 mg/dL (7.8-10.44); Carbon Dioxide 24 mmol/L (23-31); Chloride 108 mmol/L (98-107); Glucose 97 mg/dL (80-115); Potassium 4.8 mmol/L (3.5-5.1); Sodium 139 mmol/L (136-145)
[2025-04-19] MEDS ORDERED: Non-Formulary Item 1 EACH (Megestrol Acetate [Megestrol Acetate] 400 MG/10 ML Oral.Susp) PO SCH (09:00)
[2025-04-19] MEDS: Enoxaparin 30 MG (0.3 mL) SYRINGE SC SCH (09:57)
[2025-04-19] MEDS: Pantoprazole 40 MG DR.TAB PO SCH (09:57)
[2025-04-19] MEDS: Famotidine 20 MG TAB PO SCH (09:58)
[2025-04-19] MEDS: Megestrol Acetate 800 MG/20 ML UDCUP PO SCH (09:58)
[2025-04-19] MEDS: Famotidine/PF 20 mg/2ml Vial SLOW IVP SCH (09:59)
[2025-04-19 11:45] VITALS: BP 103/71; TEMP 97.9
== END 2025-04-19 15:12 | disposition home or self-care (01) | DRG 948 ==
LOC: ERS 16:19 → OBS 19:19 → OBSVTOIN 04-19 10:28
PROVIDERS: ADMIT Internal Medicine; ATTEND Hospitalist
DX: G89.3 Neoplasm related pain (acute) (chronic) (principal); C18.9 Malignant neoplasm of colon, unspecified; C78.7 Secondary malignant neoplasm of liver and intrahepatic bile duct; I16.0 Hypertensive urgency; K59.00 Constipation, unspecified; F41.9 Anxiety disorder, unspecified; F32.A Depression, unspecified; E03.9 Hypothyroidism, unspecified; E78.5 Hyperlipidemia, unspecified; F17.210 Nicotine dependence, cigarettes, uncomplicated; E87.6 Hypokalemia; I25.2 Old myocardial infarction; Z90.89 Acquired absence of other organs; Z79.890 Hormone replacement therapy; Z79.899 Other long term (current) drug therapy; Z71.6 Tobacco abuse counseling; Z98.51 Tubal ligation status
CPT/HCPCS: 36415; 74177; 80048; 80053; 83605; 83880; 84484; 85025; 96372; 96374; 96375; 96376; G0378; J0360; J1650; J2270; J2272

== ENCOUNTER 2025-05-19 21:41 | Inpatient (IN) | payer MEDICAID ==
[2025-05-19 22:44] LABS: #Basophils 0.04 10x3/uL (0.0-0.2); #Eosinophils 0.16 10x3/uL (0.0-0.7); #Monocytes 0.36 10x3/uL (0.11-0.59); #Neutrophils 2.51 10x3/uL (1.40-6.50); %Basophils 1.0 % (0.0-1.0); %Eosinophils 3.9 % (0.0-10.0); %Lymphocytes 24.3 % (21.0-51.0); %Monocytes 8.8 % (0.0-10.0); %Neutrophils 61.8 % (42.0-75.0); Hematocrit 21.5 % (36.0-47.0); Hemoglobin 6.5 g/dL (12.0-16.0); Mean Corpuscular Hemoglobin 25.2 pg (27.0-31.0); Mean Corpuscular Volume 83.3 fL (78.0-98.0); Platelet Count 276 10x3/uL (130-400); Red Blood Cell (RBC) Count 2.58 mill/uL (4.20-5.40); White Blood Cell (WBC) Count 4.07 10x3/uL (4.8-10.8)
[2025-05-19 23:09] LABS: INR-International Normal Ratio 1.1; PTT 36.3 sec (22.9-36.1); Prothrombin Time 13.9 sec (12.0-14.7)
[2025-05-19 23:14] LABS: ALT (SGPT) 7 U/L (Less than 34); AST (SGOT) 22 U/L (11-34); Albumin 3.2 g/dL (3.1-4.5); Alkaline Phosphatase 82 U/L (40-110); Anion Gap 13 mmol/L (10-20); BUN (Urea Nitrogen) 19 mg/dL (9.8-20.1); Bilirubin, Total 0.4 mg/dL (0.3-1.2); Calc. Creatinine Clearance 0 mL/min (70-130); Calcium 8.7 mg/dL (7.8-10.44); Carbon Dioxide 23 mmol/L (23-31); Chloride 105 mmol/L (98-107); Globulin 3.2 g/dL (2.4-3.5); Glucose 92 mg/dL (80-115); Lipase 7 U/L (8-78); Potassium 3.5 mmol/L (3.5-5.1); Sodium 137 mmol/L (136-145)
[2025-05-19] MEDS ORDERED: Ondansetron PF 4 MG/2 ML Vial ONE (23:41)
[2025-05-20] MEDS ORDERED: Calcium Carbonate 500 MG ChewTAB PO PRN (02:50)
[2025-05-20] MEDS ORDERED: Ondansetron PF 4 MG/2 ML Vial IVP PRN (02:50)
[2025-05-20] MEDS ORDERED: Acetaminophen 325 MG TAB PO PRN (02:50)
[2025-05-20] MEDS ORDERED: Guaifenesin DM 100-10/5 ML UDCUP PO PRN (02:50)
[2025-05-20] MEDS ORDERED: Senokot S 8.6-50 MG TAB PO PRN (02:50)
[2025-05-20] MEDS ORDERED: Melatonin 3 MG TAB PO PRN (02:50)
[2025-05-20] MEDS ORDERED: ALPRAZolam 0.25 MG TAB PO PRN (02:55)
[2025-05-20] MEDS ORDERED: Ondansetron PF 4 MG/2 ML Vial ONE (03:04)
[2025-05-20 03:27] LABS: Iron 18 ug/dL (50-170); Iron Binding Capacity, Total 288 mcg/dL (265-497)
[2025-05-20] MEDS: NIFEdipine 10 MG CAP PO SCH (05:29)
[2025-05-20] MEDS: HYDROcodone/Acetaminophen 5/325 mg Tablet PO PRN (05:31)
[2025-05-20 05:46] VITALS: BMI 17.4
[2025-05-20] MEDS: Pantoprazole 40 MG VIAL IVP SCH ×2 (06:19→08:42)
[2025-05-20] MEDS: hydrALAZINE 20 MG/ML VIAL SLOW IVP SCH (08:33)
[2025-05-20] MEDS: Pregabalin 25 MG CAP PO SCH (08:41)
[2025-05-20] MEDS: Senokot S 8.6-50 MG TAB PO SCH (08:41)
[2025-05-20] MEDS: NIFEdipine XL 60 MG ER.TAB PO SCH (08:41)
[2025-05-20] MEDS ORDERED: Iopamidol-370 76% 500 ML MDV (1 ML CHARGE) ONE (10:35)
[2025-05-20 11:37] LABS: #Basophils Less than 0.03 10x3/uL (0.0-0.2); #Eosinophils 0.26 10x3/uL (0.0-0.7); #Monocytes 0.45 10x3/uL (0.11-0.59); #Neutrophils 3.01 10x3/uL (1.40-6.50); %Basophils 0.4 % (0.0-1.0); %Eosinophils 5.6 % (0.0-10.0); %Lymphocytes 20.1 % (21.0-51.0); %Monocytes 9.6 % (0.0-10.0); %Neutrophils 64.3 % (42.0-75.0); Hematocrit 43.7 % (36.0-47.0); Hemoglobin 13.8 g/dL (12.0-16.0); Mean Corpuscular Hemoglobin 27.3 pg (27.0-31.0); Mean Corpuscular Volume 86.4 fL (78.0-98.0); Platelet Count 199 10x3/uL (130-400); Red Blood Cell (RBC) Count 5.06 mill/uL (4.20-5.40); White Blood Cell (WBC) Count 4.68 10x3/uL (4.8-10.8)
[2025-05-20 17:17] LABS: #Basophils Less than 0.03 10x3/uL (0.0-0.2); #Eosinophils 0.36 10x3/uL (0.0-0.7); #Monocytes 0.46 10x3/uL (0.11-0.59); #Neutrophils 3.58 10x3/uL (1.40-6.50); %Basophils 0.4 % (0.0-1.0); %Eosinophils 6.8 % (0.0-10.0); %Lymphocytes 16.1 % (21.0-51.0); %Monocytes 8.7 % (0.0-10.0); %Neutrophils 67.8 % (42.0-75.0); Hematocrit 43.6 % (36.0-47.0); Hemoglobin 14.1 g/dL (12.0-16.0); Mean Corpuscular Hemoglobin 27.8 pg (27.0-31.0); Mean Corpuscular Volume 86.0 fL (78.0-98.0); Platelet Count 221 10x3/uL (130-400); Red Blood Cell (RBC) Count 5.07 mill/uL (4.20-5.40); White Blood Cell (WBC) Count 5.28 10x3/uL (4.8-10.8)
[2025-05-20] MEDS: GoLYTELY 4,000 ml Bottle PO SCH (17:39)
[2025-05-20] MEDS: Pregabalin 50 MG CAP PO SCH (20:54)
[2025-05-20 21:53] LABS: #Basophils 0.03 10x3/uL (0.0-0.2); #Eosinophils 0.35 10x3/uL (0.0-0.7); #Monocytes 0.67 10x3/uL (0.11-0.59); #Neutrophils 6.70 10x3/uL (1.40-6.50); %Basophils 0.3 % (0.0-1.0); %Eosinophils 4.0 % (0.0-10.0); %Lymphocytes 12.0 % (21.0-51.0); %Monocytes 7.6 % (0.0-10.0); %Neutrophils 75.9 % (42.0-75.0); Hematocrit 45.5 % (36.0-47.0); Hemoglobin 14.9 g/dL (12.0-16.0); Mean Corpuscular Hemoglobin 28.1 pg (27.0-31.0); Mean Corpuscular Volume 85.7 fL (78.0-98.0); Platelet Count 238 10x3/uL (130-400); Red Blood Cell (RBC) Count 5.31 mill/uL (4.20-5.40); White Blood Cell (WBC) Count 8.83 10x3/uL (4.8-10.8)
[2025-05-21 05:09] LABS: #Basophils Less than 0.03 10x3/uL (0.0-0.2); #Eosinophils 0.30 10x3/uL (0.0-0.7); #Monocytes 0.98 10x3/uL (0.11-0.59); #Neutrophils 5.82 10x3/uL (1.40-6.50); %Basophils 0.3 % (0.0-1.0); %Eosinophils 3.8 % (0.0-10.0); %Lymphocytes 10.4 % (21.0-51.0); %Monocytes 12.3 % (0.0-10.0); %Neutrophils 73.1 % (42.0-75.0); Hematocrit 45.3 % (36.0-47.0); Hemoglobin 14.6 g/dL (12.0-16.0); Mean Corpuscular Hemoglobin 27.8 pg (27.0-31.0); Mean Corpuscular Volume 86.3 fL (78.0-98.0); Platelet Count 206 10x3/uL (130-400); Red Blood Cell (RBC) Count 5.25 mill/uL (4.20-5.40); White Blood Cell (WBC) Count 7.96 10x3/uL (4.8-10.8)
[2025-05-21 05:32] LABS: Anion Gap 15 mmol/L (10-20); BUN (Urea Nitrogen) 7 mg/dL (9.8-20.1); Calc. Creatinine Clearance 65 mL/min (70-130); Calcium 9.1 mg/dL (7.8-10.44); Carbon Dioxide 20 mmol/L (23-31); Chloride 108 mmol/L (98-107); Glucose 83 mg/dL (80-115); Potassium 3.4 mmol/L (3.5-5.1); Sodium 140 mmol/L (136-145)
[2025-05-21] MEDS ORDERED: PROPOFOL 20 ML ONE ×2 (13:12→14:35)
[2025-05-21 15:15] VITALS: BMI 17.4
[2025-05-22 05:31] LABS: Hematocrit 37.3 % (36.0-47.0); Hemoglobin 11.8 g/dL (12.0-16.0); Mean Corpuscular Hemoglobin 27.5 pg (27.0-31.0); Mean Corpuscular Volume 86.9 fL (78.0-98.0); Platelet Count 229 10x3/uL (130-400); Red Blood Cell (RBC) Count 4.29 mill/uL (4.20-5.40); White Blood Cell (WBC) Count 5.51 10x3/uL (4.8-10.8)
[2025-05-22] MEDS: Potassium Bicarbonate/Cit Ac 20 MEQ TAB PO SCH (09:22)
[2025-05-22 12:41] LABS: Hematocrit 38.6 % (36.0-47.0); Hemoglobin 12.5 g/dL (12.0-16.0)
[2025-05-23 05:55] LABS: Hematocrit 36.7 % (36.0-47.0); Hemoglobin 11.9 g/dL (12.0-16.0); Mean Corpuscular Hemoglobin 27.9 pg (27.0-31.0); Mean Corpuscular Volume 86.2 fL (78.0-98.0); Platelet Count 243 10x3/uL (130-400); Red Blood Cell (RBC) Count 4.26 mill/uL (4.20-5.40); White Blood Cell (WBC) Count 6.84 10x3/uL (4.8-10.8)
[2025-05-24 05:01] LABS: Hematocrit 34.9 % (36.0-47.0); Hemoglobin 10.9 g/dL (12.0-16.0)
[2025-05-24 05:29] LABS: Anion Gap 11 mmol/L (10-20); BUN (Urea Nitrogen) 8 mg/dL (9.8-20.1); Calc. Creatinine Clearance 58 mL/min (70-130); Calcium 8.4 mg/dL (7.8-10.44); Carbon Dioxide 23 mmol/L (23-31); Chloride 105 mmol/L (98-107); Glucose 105 mg/dL (80-115); Potassium 3.5 mmol/L (3.5-5.1); Sodium 135 mmol/L (136-145)
[2025-05-24 08:07] VITALS: TEMP 98.6
[2025-05-24] MEDS: Dicyclomine 20 MG TAB PO PRN (09:59)
[2025-05-24 10:01] VITALS: BP 166/98
[2025-05-24 10:36] LABS: Hematocrit 38.0 % (36.0-47.0); Hemoglobin 11.5 g/dL (12.0-16.0)
== END 2025-05-24 14:22 | disposition home or self-care (01) | DRG 394 ==
LOC: ERS 21:41 → MSONC 05-20 02:50
PROVIDERS: ADMIT Student in an Organized Health Care Education/Training Program; ATTEND Internal Medicine
PROC: 30233N1 Transfusion of Nonautologous Red Blood Cells into Peripheral Vein, Percutaneous Approach (ICD-10-PCS; 2025-05-20)
PROC: 0DB98ZX Excision of Duodenum, Via Natural or Artificial Opening Endoscopic, Diagnostic (ICD-10-PCS; principal; 2025-05-21)
PROC: 0W3P8ZZ Control Bleeding in Gastrointestinal Tract, Via Natural or Artificial Opening Endoscopic (ICD-10-PCS; 2025-05-21)
DX: K63.81 Dieulafoy lesion of intestine (principal); C18.2 Malignant neoplasm of ascending colon; D62 Acute posthemorrhagic anemia; K92.2 Gastrointestinal hemorrhage, unspecified; E44.0 Moderate protein-calorie malnutrition; F33.9 Major depressive disorder, recurrent, unspecified; C78.7 Secondary malignant neoplasm of liver and intrahepatic bile duct; Z68.1 Body mass index [BMI] 19.9 or less, adult; I10 Essential (primary) hypertension; E78.5 Hyperlipidemia, unspecified; I25.10 Atherosclerotic heart disease of native coronary artery without angina pectoris; Z98.890 Other specified postprocedural states; Z92.21 Personal history of antineoplastic chemotherapy; I16.0 Hypertensive urgency; F41.9 Anxiety disorder, unspecified; E03.9 Hypothyroidism, unspecified; G89.29 Other chronic pain; G62.9 Polyneuropathy, unspecified; Z79.899 Other long term (current) drug therapy; Z79.890 Hormone replacement therapy; F17.210 Nicotine dependence, cigarettes, uncomplicated; M54.50 Low back pain, unspecified; R63.4 Abnormal weight loss; D50.9 Iron deficiency anemia, unspecified; Z95.5 Presence of coronary angioplasty implant and graft; Z85.3 Personal history of malignant neoplasm of breast; K44.9 Diaphragmatic hernia without obstruction or gangrene
CPT/HCPCS: 36415; 36430; 71260; 74177; 80048; 80053; 82274; 82378; 82728; 83540; 83550; 83690; 84484; 85014; 85018; 85025; 85027; 85610; 85730; 86850; 86900; 86901; 88305; 93005; 94760; 96374; 96375; 96376; J2470; J2704; J2916; J7120; P9016; Q9967

== ENCOUNTER 2025-08-11 09:56 | Emergency (ER) | payer MEDICAID, OTHER ==
[2025-08-11] MEDS ORDERED: hydrALAZINE 20 MG/ML VIAL ONE (11:09)
[2025-08-11 11:42] LABS: #Basophils 0.05 10x3/uL (0.0-0.2); #Eosinophils 0.03 10x3/uL (0.0-0.7); #Monocytes 0.80 10x3/uL (0.11-0.59); #Neutrophils 9.24 10x3/uL (1.40-6.50); %Basophils 0.5 % (0.0-1.0); %Eosinophils 0.3 % (0.0-10.0); %Lymphocytes 8.4 % (21.0-51.0); %Monocytes 7.2 % (0.0-10.0); %Neutrophils 83.3 % (42.0-75.0); Hematocrit 33.4 % (36.0-47.0); Hemoglobin 10.8 g/dL (12.0-16.0); Mean Corpuscular Hemoglobin 28.6 pg (27.0-31.0); Mean Corpuscular Volume 88.4 fL (78.0-98.0); Platelet Count 643 10x3/uL (130-400); Red Blood Cell (RBC) Count 3.78 mill/uL (4.20-5.40); White Blood Cell (WBC) Count 11.08 10x3/uL (4.8-10.8)
[2025-08-11] MEDS ORDERED: Iopamidol-370 76% 500 ML MDV (1 ML CHARGE) ONE (11:52)
[2025-08-11 12:01] LABS: ALT (SGPT) Less than 7 U/L (Less than 34); AST (SGOT) 33 U/L (11-34); Albumin 2.9 g/dL (3.1-4.5); Alkaline Phosphatase 148 U/L (40-110); Anion Gap 14 mmol/L (10-20); BUN (Urea Nitrogen) 7 mg/dL (9.8-20.1); Bilirubin, Total 0.5 mg/dL (0.3-1.2); Calc. Creatinine Clearance 0 mL/min (70-130); Calcium 9.3 mg/dL (7.8-10.44); Carbon Dioxide 29 mmol/L (23-31); Chloride 102 mmol/L (98-107); Globulin 4.5 g/dL (2.4-3.5); Glucose 99 mg/dL (80-115); Lipase 6 U/L (8-78); Potassium 3.3 mmol/L (3.5-5.1); Sodium 142 mmol/L (136-145)
[2025-08-11] MEDS ORDERED: Potassium Bicarbonate/Cit Ac 20 MEQ TAB ONE (12:24)
[2025-08-11] MEDS ORDERED: HYDROcodone/Acetaminophen 10/325 mg Tablet ONE (15:16)
== END 2025-08-11 16:11 | disposition home or self-care (01) ==
LOC: ERS 09:56
DX: R10.9 Unspecified abdominal pain (principal); I10 Essential (primary) hypertension; M54.50 Low back pain, unspecified; F17.210 Nicotine dependence, cigarettes, uncomplicated; F17.290 Nicotine dependence, other tobacco product, uncomplicated
CPT/HCPCS: 70450; 71275; 74174; 80053; 83690; 83880; 84484; 85025; 93005; 94760; 96374; 96375; J0360; J2270